=== PATIENT | female | born 1995 | race Caucasian/White ===

== ENCOUNTER → 2016-12-16 | Outpatient (CLI) | payer BC, OTHER | END | disposition home or self-care (01) | LOC: C.PAPS 16:06 | PROVIDERS: ATTEND Physician Assistant | DX: Z01.419 Encounter for gynecological examination (general) (routine) without abnormal findings (principal) ==

== ENCOUNTER → 2016-12-16 | Outpatient (CLI) | payer BC, OTHER ==
[2016-12-19 14:27] LABS: CHLAMYDIA TRACH RNA*** NOT DETECTED (NOT DETECTED); GC (NEIS GONORRHOEAE)RNA** NOT DETECTED (NOT DETECTED)
== END | disposition home or self-care (01) ==
LOC: C.LABSPEC 16:31
PROVIDERS: ATTEND Physician Assistant
DX: Z01.419 Encounter for gynecological examination (general) (routine) without abnormal findings (principal)

== ENCOUNTER → 2017-05-11 | Outpatient (CLI) | payer BC ==
[2017-05-13 11:26] LABS: EBV EARLY ANTIGEN AB < 9.00 U/ML
== END | disposition home or self-care (01) ==
LOC: C.LAB1850 16:11
PROVIDERS: ATTEND Nurse Practitioner Family
DX: J02.9 Acute pharyngitis, unspecified (principal)

== ENCOUNTER 2019-10-26 16:56 | Inpatient (IN) ==
[2019-10-26 17:38] LABS: Appearance Urine Cloudy (Clear); Bacteria Urine Automated 4+ (Negative); Bilirubin Urine Negative (Negative); Blood Urine Trace (Negative); Color Urine Dark Yellow; Epithelial Cell Urine Auto >30 /lpf (0-5); Glucose Urine UA Negative (Negative); Ketones Urine Trace (Negative); Leukocyte Esterase Urine Negative (Negative); Nitrite Urine Positive (Negative); Protein Urine 1+ (Negative); RBC Urine Automated 0-4 /hpf (0-4); Urobilinogen Urine Negative (Negative); pH Urine 5.5 (4.5-7.5)
--- NOTE | 2019-10-26 17:38 | Emergency Department Note ---
Impression & Plan Mood disorder, UTI (urinary tract infection), Miscarriage ED Provider Note NAME: EZEQUIEL MCQUEEN AGE: 24 SEX: F : 1995 ARRIVES VIA: [employer] INFORMANT: Patient, , police ED PROVIDER(S): Amrit Holliday DO CHIEF COMPLAINT: Mood disorder HPI: Patient is a 24-year-old female with a past medical history of bipolar who presents the ER for racing thoughts, paranoia and delusions. 302 was petitioned by her to bring her in. She believes that she is communicating with the President Ranjit Flores by posting videos online. She also believes that she is communicating with others by doing the same thing. She notes she does not have a personal relationship with them but cannot communicate whenever she wants. She called her neighbor 30+ times and was telling her that she is related to pack. She denies any headache, change in vision, chest pain, shortness of breath, nausea, vomiting or diarrhea. She notes that she smokes marijuana daily. She has no other complaints at this time. She denies any suicidal or homicidal ideations. No auditory visual hallucinations. Patient did have a miscarriage at about 10 to 11 weeks over a week ago. She has stopped bleeding for the past 3 days. She denies any fevers. Denies any belly pain. ROS: See above HPI for pertinent positives & negatives. A total of 10 systems reviewed and were otherwise negative. PAST MEDICAL HISTORY:Bipolar PAST SURGICAL HISTORY:[place] teeth FAMILY HISTORY:Hypertension SOCIAL HISTORY:Smokes marijuana HOME MEDICATIONS:None ALLERGIES:See Below VITALS:See Below PHYSICAL EXAMINATION: GENERAL: Sitting up in bed, alert, well appearing, well nourished, no distress, non-toxic EYE EXAM: normal conjunctiva. PERRL and EOM's grossly intact. OROPHARYNX: no exudate, no erythema, lips, buccal mucosa, and tongue normal and mucous membranes are moist NECK: supple, no nuchal rigidity, no adenopathy, non-tender LUNGS: Clear to auscultation. Normal chest wall mechanics HEART: no murmurs, S1 normal and S2 normal ABDOMEN: abdomen soft, non-tender, normo-active bowel sounds, no masses, no rebound or guarding. SKIN: no rashes and no bruising UPPER EXTREMITIES: upper extremities are grossly normal. LOWER EXTREMITIES: No pitting edema. NEURO EXAM: Normal sensorium, cranial nerves II-XII grossly intact, normal speech, no gross weakness of arms, no gross weakness of legs. PSYCH: Denies any suicidal homicidal ideations. Patient with flight of ideas, clear racing thoughts delusional and paranoid. MEDICAL DECISION MAKING: Patient is a 25-year-old female who presents the ER on a 302 petition by brought in by police. Patient is delusional, paranoid, with flight of ideas and racing thoughts. She believes she is communicating with the president and multiple other people via [place]. She believes to be related to [employer]. From a psychiatric standpoint she clearly needs to be admitted. She was evaluated by Kathleen; psychiatric assisted living care manager. Patient does not have the ability/capacity to sign herself in. We will proceed with 302 which is signed by myself. From a medical standpoint she has no complaints. Vaginal bleeding stopped 3 days ago. She is O+. No need for RhoGam. Beta hCG trended down from over 4000 to 18 today. Ultrasound showed mild prominence of the endometrium with areas of central blood flow. Concern of retained products. Patient currently has no vaginal bleeding at this time or for the past three days. Discussed with Dr. Olmedo from [facility]. She recommends repeat beta-hCG in 1 week and follow up as out patient. UA did suggest a UTI with +4 bacteria, and nitrates although there was no real white cells and there is clear comtamination. Will err on the side of caution and treat with Bactrim twice a day for 7 days although she has no real symptoms. Patient will be referred to 3 S. for admis marcelle from a psychiatric standpoint as she is medically stable at this time. Any recurrence of significant vaginal bleeding or foul-smelling vaginal discharge she will need to be reevaluated at that time. Patient was signed out to Dr. Flores at the change of shift. 820PM Triage Nursing notes reviewed. Prior medical records reviewed Vital Signs: reviewed and remarkable for no significant abnormalities Differential diagnosis: Mood disorder, infection, hypoglycemia, electrolyte abnormalities, cardiac sources, intracerebral event, toxicologic, trauma, neurologic, as well as other pathologies. ER treatment provided: See below Diagnostics interpreted by me: ECG: none Laboratory studies: As stated above and show below. Imaging studies: See below Consultation(s): Discussed with Dr. Olmedo from [facility]: Reviewed labs and ultrasound with her. Recommends repeat beta-hCG in 1 week. ED COURSE: Procedures: none Critical Care: None Past Med/Surg History Social History Preferred Language: Korean Feels Safe at Home: Yes Smoking Status: Current every day smoker Allergies Allergies Allergy/AdvReac Type Severity Reaction Status Date / Time lactose Allergy Gastrointestinal Verified 10/13/18 23:28 Upset Home Meds Home Medications Medication Instructions Recorded Confirmed [id number] 1 tab PO DAILY 10/26/19 10/26/19 [] zinc 50 mg PO DAILY 10/26/19 10/26/19 Results & Data (ED) Vital Signs Vital Signs - 24 hr 10/26/19 17:27 10/26/19 19:20 Temperature 37.6 C H Temperature Source Oral Pulse Rate 114 H Pulse Rate [Finger] 93 H Respiratory Rate 18 16 Respiratory Depth Normal Blood Pressure 152/116 H Blood Pressure [Left Arm] 140/86 Blood Pressure Mean 128 Blood Pressure Mean [Left Arm] 104 Pulse Oximetry 99 100 Oxygen Delivery Method Room Air Room Air Sepsis Recent Fever Within 48 Hours No Sepsis New/Unexplained Change in Mental Status No Sepsis Action Taken by Nursing No Action Required Laboratory Data Result diagrams: 10/26/19 17:32 10/26/19 17:32 Lab Results 10/26/19 10/26/19 10/26/19 Range/Units 17:11 17:11 17:27 WBC (4.8-10.8) K/uL RBC (4.2-5.4) M/uL Hgb (12.0-16.0) g/dL Hct (37-47) % MCV (80-100) fL MCH (25-34) pg MCHC (32-36) g/dL RDW Std Deviation (36.4-46.3) fL RDW Coeff of Debby (11.5-14.5) % Plt Count (130-400) K/uL MPV (7.4-10.4) fL Immature Gran % (Auto) % Neut % (Auto) % Lymph % (Auto) % [place] % (Auto) % Eos % (Auto) % Baso % (Auto) % Immature Gran # (Auto) (0.00-0.02) K/uL Neut # (Auto) (1.4-6.5) K/uL Lymph # (Auto) (1.2-3.4) K/uL [place] # (Auto) (0.11-0.59) K/uL Eos # (Auto) (0-0.5) K/uL Baso # (Auto) (0-0.2) K/uL Sodium (136-145) mmol/L Potassium (3.5-5.1) mmol/L Chloride (98-107) mmol/L Carbon Dioxide (21-32) mmol/L Anion Gap (3-11) BUN (7-18) mg/dl Creatinine (0.6-1.2) mg/dl Est Cr Clr Drug Dosing ml/min Est GFR ( Amer) Est GFR (Non-Af Amer) BUN/Creatinine Ratio (10-20) Glucose (70-99) mg/dl Calcium (8.5-10.1) mg/dl Total Bilirubin (0.2-1) mg/dl AST (15-37) U/L ALT (12-78) U/L Alkaline Phosphatase (45-117) U/L Total Protein (6.4-8.2) gm/dl Albumin (3.4-5.0) gm/dl Globulin (2.5-4.0) gm/dl Albumin/Globulin Ratio (0.9-2) TSH (0.300-4.500) uIu/ml HCG, Quant mIU/ml Urine Color Dark Yellow Urine Appearance Cloudy A (Clear) Urine pH 5.5 (4.5-7.5) Ur Specific [place] 1.020 (1.000-1.030) Urine Protein 1+ H (Negative) Urine Glucose (UA) Negative (Negative) Urine Ketones Trace H (Negative) Urine Blood Trace H (Negative) Urine Nitrite Positive A (Negative) Urine Bilirubin Negative (Negative) Urine Urobilinogen Negative (Negative) Ur Leukocyte Esterase Negative (Negative) Urine WBC (Auto) 1-5 (0-5) /hpf Urine RBC (Auto) 0-4 (0-4) /hpf U Hyaline Cast (Auto) 5-10 H (0-5) /lpf U Epithel Cells (Auto) >30 H (0-5) /lpf Urine Bacteria (Auto) 4+ H (Negative) POC Ur Test POS (NEG) Salicylates (2.8-20) mg/dl Urine Opiates Screen Neg (Neg) Ur Methadone, Qual Neg (Neg) Acetaminophen (10-30) ug/ml Urine Barbiturates Neg (Neg) Ur Phencyclidine (PCP) Neg (Neg) U Amphetamin/Meth Scrn Neg (Neg) MDMA (Ecstasy) Screen Neg (Neg) U Benzodiazepines Scrn Neg (Neg) Ur Cocaine Metabolite Neg (Neg) U Marijuana (THC) Screen Pos H (Neg) Ethyl Alcohol mg/dL (0-3) mg/dl 10/26/19 10/26/19 10/26/19 Range/Units 17:32 17:32 17:32 WBC 4.58 L (4.8-10.8) K/uL RBC 4.38 (4.2-5.4) M/uL Hgb 13.2 (12.0-16.0) g/dL Hct 37.5 (37-47) % MCV 85.6 (80-100) fL MCH 30.1 (25-34) pg MCHC 35.2 (32-36) g/dL RDW Std Deviation 41.1 (36.4-46.3) fL RDW Coeff of Debby 13.1 (11.5-14.5) % Plt Count 232 (130-400) K/uL MPV 9.9 (7.4-10.4) fL Immature Gran % (Auto) 0.2 % Neut % (Auto) 43.6 % Lymph % (Auto) 44.8 % [place] % (Auto) 8.7 % Eos % (Auto) 2.0 % Baso % (Auto) 0.7 % Immature Gran # (Auto) 0.01 (0.00-0.02) K/uL Neut # (Auto) 2.00 (1.4-6.5) K/uL Lymph # (Auto) 2.05 (1.2-3.4) K/uL [place] # (Auto) 0.40 (0.11-0.59) K/uL Eos # (Auto) 0.09 (0-0.5) K/uL Baso # (Auto) 0.03 (0-0.2) K/uL Sodium 140 (136-145) mmol/L Potassium 3.6 (3.5-5.1) mmol/L Chloride 108 H (98-107) mmol/L Carbon Dioxide 25 (21-32) mmol/L Anion Gap 7.0 (3-11) BUN 9 (7-18) mg/dl Creatinine 0.93 (0.6-1.2) mg/dl Est Cr Clr Drug Dosing 85.4 ml/min Est GFR ( Amer) 99.0 Est GFR (Non-Af Amer) 85.4 BUN/Creatinine Ratio 9.9 L (10-20) Glucose 80 (70-99) mg/dl Calcium 9.1 (8.5-10.1) mg/dl Total Bilirubin 0.7 (0.2-1) mg/dl AST 33 (15-37) U/L ALT 37 (12-78) U/L Alkaline Phosphatase 46 (45-117) U/L Total Protein 7.8 (6.4-8.2) gm/dl Albumin 4.2 (3.4-5.0) gm/dl Globulin 3.6 (2.5-4.0) gm/dl Albumin/Globulin Ratio 1.2 (0.9-2) TSH 0.307 (0.300-4.500) uIu/ml HCG, Quant mIU/ml Urine Color Urine Appearance (Clear) Urine pH (4.5-7.5) Ur Specific [place] (1.000-1.030) Urine Protein (Negative) Urine Glucose (UA) (Negative) Urine Ketones (Negative) Urine Blood (Negative) Urine Nitrite (Negative) Urine Bilirubin (Negative) Urine Urobilinogen (Negative) Ur Leukocyte Esterase (Negative) Urine WBC (Auto) (0-5) /hpf Urine RBC (Auto) (0-4) /hpf U Hyaline Cast (Auto) (0-5) /lpf U Epithel Cells (Auto) (0-5) /lpf Urine Bacteria (Auto) (Negative) POC Ur Test (NEG) Salicylates 3.4 (2.8-20) mg/dl Urine Opiates Screen (Neg) Ur Methadone, Qual (Neg) Acetaminophen < 2 L (10-30) ug/ml Urine Barbiturates (Neg) Ur Phencyclidine (PCP) (Neg) U Amphetamin/Meth Scrn (Neg) MDMA (Ecstasy) Screen (Neg) U Benzodiazepines Scrn (Neg) Ur Cocaine Metabolite (Neg) U Marijuana (THC) Screen (Neg) Ethyl Alcohol mg/dL (0-3) mg/dl 10/26/19 10/26/19 Range/Units 17:32 17:32 WBC (4.8-10.8) K/uL RBC (4.2-5.4) M/uL Hgb (12.0-16.0) g/dL Hct (37-47) % MCV (80-100) fL MCH (25-34) pg MCHC (32-36) g/dL RDW Std Deviation (36.4-46.3) fL RDW Coeff of Debby (11.5-14.5) % Plt Count (130-400) K/uL MPV (7.4-10.4) fL Immature Gran % (Auto) % Neut % (Auto) % Lymph % (Auto) % [place] % (Auto) % Eos % (Auto) % Baso % (Auto) % Immature Gran # (Auto) (0.00-0.02) K/uL Neut # (Auto) (1.4-6.5) K/uL Lymph # (Auto) (1.2-3.4) K/uL [place] # (Auto) (0.11-0.59) K/uL Eos # (Auto) (0-0.5) K/uL Baso # (Auto) (0-0.2) K/uL Sodium (136-145) mmol/L Potassium (3.5-5.1) mmol/L Chloride (98-107) mmol/L Carbon Dioxide (21-32) mmol/L Anion Gap (3-11) BUN (7-18) mg/dl Creatinine (0.6-1.2) mg/dl Est Cr Clr Drug Dosing ml/min Est GFR ( Amer) Est GFR (Non-Af Amer) BUN/Creatinine Ratio (10-20) Glucose (70-99) mg/dl Calcium (8.5-10.1) mg/dl Total Bilirubin (0.2-1) mg/dl AST (15-37) U/L ALT (12-78) U/L Alkaline Phosphatase (45-117) U/L Total Protein (6.4-8.2) gm/dl Albumin (3.4-5.0) gm/dl Globulin (2.5-4.0) gm/dl Albumin/Globulin Ratio (0.9-2) TSH (0.300-4.500) uIu/ml HCG, Quant 18 mIU/ml Urine Color Urine Appearance (Clear) Urine pH (4.5-7.5) Ur Specific [place] (1.000-1.030) Urine Protein (Negative) Urine Glucose (UA) (Negative) Urine Ketones (Negative) Urine Blood (Negative) Urine Nitrite (Negative) Urine Bilirubin (Negative) Urine Urobilinogen (Negative) Ur Leukocyte Esterase (Negative) Urine WBC (Auto) (0-5) /hpf Urine RBC (Auto) (0-4) /hpf U Hyaline Cast (Auto) (0-5) /lpf U Epithel Cells (Auto) (0-5) /lpf Urine Bacteria (Auto) (Negative) POC Ur Test (NEG) Salicylates (2.8-20) mg/dl Urine Opiates Screen (Neg) Ur Methadone, Qual (Neg) Acetaminophen (10-30) ug/ml Urine Barbiturates (Neg) Ur Phencyclidine (PCP) (Neg) U Amphetamin/Meth Scrn (Neg) MDMA (Ecstasy) Screen (Neg) U Benzodiazepines Scrn (Neg) Ur Cocaine Metabolite (Neg) U Marijuana (THC) Screen (Neg) Ethyl Alcohol mg/dL < 3.0 (0-3) mg/dl Administered Medications Discontinued Medications Trimethoprim/Sulfamethoxazole (Septra Ds 800/160mg Tab) 1 tab PO NOW ONE Stop: 10/26/19 18:10 Last Admin: 10/26/19 18:25 Dose: 1 tab Documented by: [id number] Discharge Plan Visit Data Chief Complaint: Mental Health Evaluation ED Provider: Christiano Flores Discharge Problem: Mood disorder, UTI (urinary tract infection), Miscarriage Forms Stand Alone Forms: [facility] [employer], Suicide Prevention Resources Prescriptions Prescriptions: No Action 28-800 mg-mcg Tablet 1 tab PO DAILY RF: 0 zinc 50 mg Tablet 50 mg PO DAILY RF: 0 Discharge Problem: UTI (urinary tract infection) Qualifiers: Urinary tract infection type: site unspecified Hematuria presence: without hematuria Qualified Code(s): N39.0 - Urinary tract infection, site not specified
[2019-10-26 17:50] LABS: Basophils # (auto) 0.03 K/uL (0-0.2); Basophils % (auto) 0.7 %; Eosinophils # (auto) 0.09 K/uL (0-0.5); Hematocrit (blood only) 37.5 % (37-47); Hemoglobin 13.2 g/dL (12.0-16.0); Immature Granulocytes # (auto) 0.01 K/uL (0.00-0.02); Immature Granulocytes % (auto) 0.2 %; Lymphocytes # (auto) 2.05 K/uL (1.2-3.4); Lymphocytes % (auto) 44.8 %; Mean Corpuscular Hemoglobin 30.1 pg (25-34); Mean Corpuscular Hgb Conc 35.2 g/dL (32-36); Mean Corpuscular Volume 85.6 fL (80-100); Mean Platelet Volume 9.9 fL (7.4-10.4); Monocytes % (auto) 8.7 %; Neutrophils % (auto) 43.6 %; Platelet Count 232 K/uL (130-400); RDW Coefficient of Variation 13.1 % (11.5-14.5); RDW Standard Deviation 41.1 fL (36.4-46.3); Red Blood Count 4.38 M/uL (4.2-5.4); White Blood Count 4.58 K/uL (4.8-10.8)
[2019-10-26 18:05] LABS: Amphetamines+Metham, Urine Neg (Neg); Barbiturates, Urine Neg (Neg); Benzodiazepine, Urine Neg (Neg); Cocaine, Urine Neg (Neg); MDMA (Ecstacy), Urine Neg (Neg); Methadone, Urine Neg (Neg); Opiate, Urine Neg (Neg); Phencyclidine, Urine Neg (Neg)
[2019-10-26] MEDS ORDERED: cephALEXin 250 MG CAP PO ONE (18:06)
[2019-10-26] MEDS ORDERED: SULFAMETHOXAZOLE/TRIMETHOPRIM DS 800/160MG TAB PO ONE (18:09)
[2019-10-26 18:16] LABS: Albumin Level 4.2 gm/dl (3.4-5.0); BUN Creatinine Ratio 9.9 (10-20); Calcium 9.1 mg/dl (8.5-10.1); Creatinine Clr Calc Pharmacy 85.4 ml/min; Est GFR (Non-African American) 85.4; Potassium 3.6 mmol/L (3.5-5.1)
[2019-10-26 18:24] LABS: Acetaminophen < 2 ug/ml (10-30)
[2019-10-26 18:25] LABS: Salicylate 3.4 mg/dl (2.8-20)
[2019-10-26 18:26] LABS: Albumin Globulin Ratio 1.2 (0.9-2); Bilirubin,Total 0.7 mg/dl (0.2-1); Globulin 3.6 gm/dl (2.5-4.0); Thyroid Stimulating Hormone 0.307 uIu/ml (0.300-4.500); Total Protein 7.8 gm/dl (6.4-8.2)
--- NOTE | 2019-10-26 19:40 | Ultrasound Report ---
US OB <= 14 weeks fetus HISTORY: 24 years-old Female vag bleed +bhcg acute vaginal bleeding with positive test COMPARISON: None TECHNIQUE: Multiple real-time sonographic images of the deep pelvic structures were obtained transabd ominally and transvaginally assessing grayscale appearance, color and spectral flow FINDINGS: TRANSABDOMINAL: Pelvic structures are suboptimally visualized. TRANSVAGINAL: Fluid is noted within the endocervical canal. Anteflexed uterus. Endometrium at the level of the fund us measures 8 mm and demonstrates areas of increased central flow. No intrauterine or extrauterine ge station identified. Follicular changes of the right ovary are noted which measures 3.0 x 3.4 x 1.9 cm. Trace free fluid i s noted adjacent to the right adnexum. Arterial inflow and venous outflow to the right ovary is docum ented. Follicular changes of the left ovary are noted which measures 2.5 x 4.5 x 2.9 cm. Arterial inflow and venous outflow to the left ovary is documented. Dominant left ovarian follicle, 2.0 cm. IMPRESSION: 1. No intrauterine or extrauterine gestation identified. 2. Mild prominence of the fundal endometrium with areas of central blood flow. In the clinical settin g of acute vaginal bleeding with positive test, these findings may correlate with retained products of conception with spontaneous . Correlate with pelvic exam findings and serial bean titative beta hCG analysis. 3. Trace fluid of the endocervical canal. ACT 112: Negative or not required by law. The above report was generated using voice recognition software. It may contain grammatical, syntax o r spelling errors. Electronically signed by: Otto Vera M.D. 10/26/2019 7:39 PM
--- NOTE | 2019-10-26 22:55 | Emergency Department Note ---
ED Visit Note I assumed care at the change of shift. The patient was being evaluated by our psychiatric services at this hospital for 302 hospitalization. The team from the hospital requested a rapid coronavirus test. This was run and returned negative. The patient has been cooperative during her stay while under my care. She is being transferred upstairs for an involuntary 302 psychiatric hospitalization. . : UTI (urinary tract infection) Qualifiers: Urinary tract infection type: site unspecified Hematuria presence: without hematuria Qualified Code(s): N39.0 - Urinary tract infection, site not specified
[2019-10-27] MEDS ORDERED: risperiDONE ODT 0.5 MG SOLTAB PO PRN (01:23)
[2019-10-27] MEDS ORDERED: MAGNESIUM HYDROXIDE SUSP 30 ML UDC PO PRN (01:25)
[2019-10-27] MEDS ORDERED: SODIUM CHLORIDE 0.65% NA SOLN 45 ML (OCEAN) PRN (01:25)
[2019-10-27] MEDS ORDERED: BISMUTH SUBSALICYLATE PER ML OMNICELL CHARGE PO PRN (01:25)
[2019-10-27] MEDS ORDERED: ACETAMINOPHEN 325 MG TAB PO PRN (01:25)
[2019-10-27] MEDS ORDERED: ALUMINUM/MAGNESIUM SUSP 30 ML UDC PO PRN (01:25)
[2019-10-27] MEDS: risperiDONE ODT 0.5 MG SOLTAB PO SCH ×3 (01:46→22:21)
[2019-10-27] MEDS: SULFAMETHOXAZOLE/TRIMETHOPRIM DS 800/160MG TAB PO SCH ×2 (08:01→22:21)
[2019-10-27] MEDS ORDERED: NICOTINE 7 MG/24 HR TDSY TD SCH (09:00)
[2019-10-27] MEDS ORDERED: QUETIAPINE FUMARATE 25 MG TABLET PO PRN (17:04)
--- NOTE | 2019-10-27 20:28 | History & Physical ---
Date of Service October 27, 2019 Impression / Recommendations Impression bipolar d/o manic episode newly dx and new for pt to be addressing this 3rd miscarriages per pt, pt wants to try to get again once psychiatric stabilized upcoming local move, cocoons of Covid 19, work concerns, interpersonal interactions with aggravating factors 302 admission with pt seeking assistance and open to being in a manic state and open to bipolar d/o dx with tendency to also externalize in her racing thoughts and pressured speech, she sis seeking medication to stabilize her mood. She is open to aftercare referrals. Rec'd Risperdal in ER but we are switching to Seroquel and titrating Seroquel up given prolactin impact expected with Risperdal andhow can impact her aim to try to become in future. Reviewed various medications to target her isrrael and pt most interested in Seroquel at this time Plan Bipolar d/o 302 admission 3S q15 minute checks milieu therapy inpt individual and group therapy stopped Risperdal start Seroquel at 50mg Hs and 25mg prn doses up to bid with aim to titrate further as tolerating. fasting labs for sugar and lipids given atypical antipsychotic start psychoeducation aftercare referrals family meeting - aiming for meeting with Inventory Assets Strengths: intelligent, decent insight into her presentation and seeking treatment Needs: stabilization of mood symptoms, aftercare, medication to target symptoms, further education about dx and symptoms Risk Factors Assessment Male: No : No Do You Have Access To A Gun?: No Health Problems: No Mental Health Diagnoses: Yes Substance Use Disorders: No Previous Attempt: Yes Previous Psychiatric Hospitalization: No Smoker: Yes Protective Factors Assessment Responsible for Young Children: No 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 Chief Complaint "angry,stressed, reactive due to covid 19 and my History of Present Illness pt is a 24 yr old female living with her , admitted on a 302 commitment. Pt is with pressured speech and focused on explaining the source of her stress being covid 19 and her 's untreated bipolar II disorder. However in midst of this she does admit to a tendency to externalize and that she wonders if she has bipolar I disorder. She is insightful about her racing thoughts, labile mood, intense anger, increased goal directed activity, impatience, increased sexuality, hyperverbal, pressured speech, restlessness, creative thinking, decreased need for sleep with getting only 2-3 hours of sleep over course of 24 hour day in 2-3 small mini naps over course of day, over driven behaviors and feeling tense and struggling to manage these symptoms and struggling to contain herself in interpersonal situations. She is reported to have had delusional thinking and she indicated that there was a misunderstanding of her facebook posts as she did not mean them in the context they were taken but that she seemed to understand that her manic smyptoms might have lead to some of this now reported misunderstanding. no delusional or paranoid material was noted in this current interview, with pt reporting rather intact infight and judgment during this assessment. she denied overspending of money. She endorsed a tendency to get to depressed mood at times. She has had prior depressive episodes in the past, one of which lead her to take Wellbutrin soni (150mg?) daily for a month and amrita neglected to renew her script. She felt much echter as she too the Wellbutrin that it help her severely limit her smoking, she worsened n her mood shortly after stopping that med. She denied s/e while on it including denying worsening of lability of her mood or activating manic symptoms. additional aggravating factor is amrita having her 3rd miscarriage. she is seeing to try of become again but not aiming tor this till more emotional stable and less stressed. additional aggravating factor is preparing for a local move. lives with and supportive family members live quite close to them. 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 she is taking a open course online and seeking to study church studies at [employer] with goal of becoming a professor in that field in the future. denied SI, indicated agitated tied oat manic symptoms with admitting to gating out of control verbally but not physically but was intense in her anger recently. Past Psychiatric History Previous Psych History: denied prior med trials denied prior psychiatric admissions denied prior appts with a psychiatrist Current Psychiatric Diagnosis: bipolar disorder Do You Have Access To A Gun?: No History of Previous Suicide Attempt: Yes Describe Attempts in the Past: 1 1/2 years ago - stated thoughts to cut wrist. Per mother - OD Allergies Allergy/AdvReac Type Severity Reaction Status Date / Time lactose Allergy Gastrointestinal Verified 10/13/18 23:28 Upset Home Medications Home Medications Medication Instructions Recorded Confirmed Type [id number] fumarate-FA 1 tab PO DAILY 10/26/19 10/26/19 History [] zinc 50 mg PO DAILY 10/26/19 10/26/19 History Family History Family History of: None Alcohol History Hx of Alcohol Use Over the Past 12 Months: Yes (social/occassional) Smoking Use Have You Smoked or Used Tobacco Products in the Last 30 Days: Yes tobacco type: cigarettes Smoking Status: Current every day smoker Smoking packs per day: 1 (plus more lately ) Substance History Hx of Prescription Med Misuse Over the Past 12 Months: No Hx of Over the Counter Med Misuse Over the Past 12 Months: No Hx of Inhalent Misuse Over the Past 12 Months: No Hx of Organic Substance Use Over the Past 12 Months: No Hx of Illegal Substances/Street Drug Use Over Past 12 Months: No Problems as a Result of Past Substance Use: None Identified Personal History Living Arrangements: Apartment Highest Grade Completed: Vocational Training Marital Status: Number Of Children: Has had 3 miscarriages in 2 years Beliefs That Will Affect Care: None Patient History Social History Preferred Language: Israeli Communication Ability: Effective Cd Technician Required: No Beliefs That Will Affect Care: None Feels Safe at Home: Yes Smoking Status: Current every day smoker Tobacco Type: cigarettes ; Review of Systems Review of Systems: All systems reviewed & are unremarkable except as noted in HPI & below limited sleep and limited eating past month while manic, wt loss has occurred per pt denied other positive findings Physical Exam Psychiatric: Orientation: alert, oriented x 3 and cooperative Apperance: appropriately dressed and appropriately groomed Eye Contact: good eye contact Motor Behavior: steady gait and station Speech: + pressured speech excited almost euphoric affect that can get agitated easily easily angered and very stressed and easily excited mood per pt Thought Process: + circumstantial thought process and + tangential thought process externalization and extensive rationalizing while also acknowledging that in manic state Suicidal Thoughts: denies suicidal thoughts Homicidal Thoughts: denies homicidal thoughts Hallucinations: no auditory hallucinations and no visual hallucinations Cognition: recent memory grossly intact, remote memory grossly intact and language grossly intact impaired concentration Insight: + fair insight Judgement: + fair judgement physical exam done in ER on 09/[address] Holliday was reviewed and considered appropriate and acceptable and sufficent for purpose of this admission Vital Signs (Past 24 Hours): Last Vital Signs Temp 36.7 C 10/27/19 07:12 Pulse 103 H 10/27/19 07:13 Resp 18 10/27/19 07:12 BP 133/96 10/27/19 07:13 Pulse Ox 99 10/27/19 01:09 Results & Data ([facility]) Laboratory Results Laboratory Results - last 24 hr 10/26/19 21:29 COVID-19 PCR NEGATIVE Current Inpatient Medications Current Inpatient Medications: Current Inpatient Medications Acetaminophen (Tylenol) 650 mg PO Q4H PRN PRN Reason: Headache or Minor Fever Stop: 11/26/19 01:24 Al Hydrox/Mg Hydrox/Simethicone (Maalox) 30 ml PO Q4H PRN PRN Reason: GI Upset Stop: 11/26/19 01:24 Bismuth Subsalicylate (Kaopectate) 15 ml PO PRN PRN PRN Reason: Loose Stool Stop: 11/26/19 01:24 Bupropion HCl (Wellbutrin-Sr) 150 mg PO QAM [facility] Stop: 11/27/19 08:59 Hydroxyzine HCl (Vistaril) 50 mg PO HSZ PRN PRN Reason: Insomnia Stop: 11/26/19 01:24 Hydroxyzine HCl (Vistaril) 25 mg PO Q4H PRN PRN Reason: Anxiety Stop: 11/26/19 01:24 Magnesium Hydroxide (Milk Of Magnesia) 30 ml PO DAILY PRN PRN Reason: Constipation Stop: 11/26/19 01:24 Miscellaneous (Remove Nicoderm Patch) 1 ea N/A DAILY@0859 [facility] Stop: 11/27/19 08:58 Nicotine (Nicoderm Cq) 14 mg TD QAM [facility] Stop: 11/26/19 17:14 Nicotine Polacrilex (Nicorette 2mg) 1 piece MT PRN PRN PRN Reason: smoking cravings Stop: 11/26/19 17:04 Quetiapine Fumarate (Seroquel) 25 mg PO BID PRN PRN Reason: agitation/manic symptoms Stop: 11/26/19 20:59 Quetiapine Fumarate (Seroquel) 50 mg PO HS [facility] Stop: 11/26/19 21:59 Risperidone (Risperdal M) 0.5 mg PO BID [facility] Stop: 11/26/19 01:22 Last Admin: 10/27/19 08:01 Dose: 0.5 mg Documented by: Risperidone (Risperdal M) 0.5 mg PO BID PRN PRN Reason: Agitation/psychosis Stop: 11/26/19 01:22 Sodium Chloride ([place] Nasal) 1 - 2 sprays NA PRN PRN PRN Reason: Nasal Dryness/Congestion Stop: 11/26/19 01:24 Trimethoprim/Sulfamethoxazole (Septra Ds 800/160mg Tab) 1 tab PO BID [facility] Stop: 11/03/19 08:59 Last Admin: 10/27/19 08:01 Dose: 1 tab Documented by:
[2019-10-27] MEDS ORDERED: QUETIAPINE FUMARATE 25 MG TABLET PO SCH (22:00)
[2019-10-27] MEDS: NICOTINE 14 MG/24 HR PATCH TD SCH (22:21)
[2019-10-28] MEDS: SULFAMETHOXAZOLE/TRIMETHOPRIM DS 800/160MG TAB PO SCH ×2 (08:33→21:08)
[2019-10-28] MEDS: NICOTINE 14 MG/24 HR PATCH TD SCH (08:34)
[2019-10-28] MEDS: risperiDONE ODT 0.5 MG SOLTAB PO SCH (08:34)
[2019-10-28] MEDS: BuPROPion SR 150 MG TABCR PO SCH (08:34)
[2019-10-28 09:03] LABS: Glucose Fasting 75 mg/dl (70-99)
[2019-10-28 09:09] LABS: Chol HDL Ratio 2; Cholesterol 208 mg/dl (0-200); HDL Cholesterol 101 mg/dl; LDL Cholesterol Calculated 95 mg/dl; Triglycerides 59 mg/dl (0-150); VLDL Cholesterol 12 mg/dl
[2019-10-28] MEDS ORDERED: LACTASE 3000 UNIT TAB PO PRN (13:38)
[2019-10-28] MEDS: QUETIAPINE FUMARATE 25 MG TABLET PO SCH (15:04)
--- NOTE | 2019-10-28 17:20 | Psychiatric Progress Note ---
Date of Service October 28, 2019 Impression / Recommendations Impression bipolar d/o manic episode newly dx and new for pt to be addressing this 3rd miscarriages per pt, pt wants to try to get again once psychiatric stabilized upcoming local move, cocoons of Covid 19, work concerns, interpersonal interactions with aggravating factors 302 admission with pt seeking assistance and open to being in a manic state and open to bipolar d/o dx with tendency to also externalize in her racing thoughts and pressured speech, she sis seeking medication to stabilize her mood. She is open to aftercare referrals. Rec'd Risperdal in ER but we are switching to Seroquel and titrating Seroquel up given prolactin impact expected with Risperdal and how can impact her aim to try to become in future. Reviewed various medications to target her isrrael and pt most interested in Seroquel at this time. ongoing smyptoms and would expect decompensation and risk of harm to self and others if discharged at this time, however pt is expressing some reasonable insight and jdugment about seeking care. Is posible pt might be able to convert to voltnary treaatment status if such engagement and improvement is noted Plan Bipolar d/o 10/26 302 admission 3S q15 minute checks milieu therapy inept individual and group therapy stopped Risperdal start Seroquel at 50mg Hs and 25mg pen doses up to bid with aim to titrate further as tolerating. fasting labs for sugar and lipids given atypical antipsychotic start psychoeducation aftercare referrals family meeting - aiming for meeting with 10/27 increase seroquel to 25mg am schedule and 100mg hs scheduled and maintained 25mg prn doses up to bid continue treatment plan as above, family meeting pending Inventory Assets Strengths: intelligent, decent insight into her presentation and seeking treatment Needs: stabilization of mood symptoms, aftercare, medication to target symptoms, further education about dx and symptoms Risk Factors Assessment Male: No : No Do You Have Access To A Gun?: No Health Problems: No Mental Health Diagnoses: Yes Substance Use Disorders: No Previous Attempt: Yes Previous Psychiatric Hospitalization: No Smoker: Yes Protective Factors Assessment Responsible for Young Children: No 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 Review of Systems Sleep Information Total Hours of Sleep: 11 Sleep Comments: admitted at 0112. Meal Information Percent Meal Consumed - Breakfast: 100 Percent Meal Consumed - Lunch: 100 Percent Meal Consumed - Dinner: 50 Subjective Subjective Patient was seen & assessed and interval progress reviewed with nursing and social work slept from mid evening to morning, faitgued for first hour that was up in morning but that resolved. mind is less racing per pt but can get racing easily when on subjects interested in or similarly triggered per pt, states racing process gets quite severely quite suddenlly tioday. anger much less present today. feels more able to ocntain her speech and thoughts today but was frustrated when strugled to spell worldbackwards and indicated that it showed her how she is more impacted by her racing thougths and related smyptoms then she would prefer to admit. She conitues toexternalize and raitonalize but continues to easily move past that when redirected by director underwriter sales. denied SI or HI. expresses that nyone thinking she was with SI or HI was misunderstanding her comments and her intention. She is engaging wiht peers but in manner that is tied ot her hyperverbalness and pressured speech and in a more professoral manner when observed by director underwriter sales. She feels seroquel helped her sleep. and is open to titrating it further and to have a small am schedule dose as well and access to small prn doses as well. Physical Exam Psychiatric Orientation: alert, oriented x 3 and cooperative Apperance: appropriately dressed and appropriately groomed Eye Contact: good eye contact Motor Behavior: steady gait and station Speech: + pressured speech Thought Process: + circumstantial thought process and + tangential thought process Suicidal Thoughts: denies suicidal thoughts Homicidal Thoughts: denies homicidal thoughts Hallucinations: no auditory hallucinations and no visual hallucinations Cognition: recent memory grossly intact, remote memory grossly intact and language grossly intact Insight: + fair insight Judgement: + fair judgement Vital Signs (Past 24 Hours) Last Vital Signs Temp 36.6 C 10/28/19 06:00 Pulse 80 10/28/19 06:00 Resp 18 10/28/19 06:00 BP 122/81 10/28/19 06:00 Pulse Ox 99 10/27/19 01:09 Results & Data ([facility]) Laboratory Results Laboratory Results - last 24 hr 10/28/19 08:18 Fasting Glucose 75 Triglycerides 59 Cholesterol 208 H LDL Cholesterol, Calc 95 VLDL Cholesterol, Calc 12 HDL Cholesterol 101 Cholesterol/HDL Ratio 2 Current Inpatient Medications Current Inpatient Medications: Current Inpatient Medications Acetaminophen (Tylenol) 650 mg PO Q4H PRN PRN Reason: Headache or Minor Fever Stop: 11/26/19 01:24 Al Hydrox/Mg Hydrox/Simethicone (Maalox) 30 ml PO Q4H PRN PRN Reason: GI Upset Stop: 11/26/19 01:24 Bismuth Subsalicylate (Kaopectate) 15 ml PO PRN PRN PRN Reason: Loose Stool Stop: 11/26/19 01:24 Bupropion HCl (Wellbutrin-Sr) [facility] Stop: 11/27/19 08:59 Last Admin: 10/28/19 08:34 Dose: 150 mg Documented by: Hydroxyzine HCl (Vistaril) 50 mg PO HSZ PRN PRN Reason: Insomnia Stop: 11/26/19 01:24 Hydroxyzine HCl (Vistaril) 25 mg PO Q4H PRN PRN Reason: Anxiety Stop: 11/26/19 01:24 Lactase (Lactaid) 3,000 units PO PRN PRN PRN Reason: lactose exposure Stop: 11/27/19 13:44 Magnesium Hydroxide (Milk Of Magnesia) 30 ml PO DAILY PRN PRN Reason: Constipation Stop: 11/26/19 01:24 Miscellaneous (Remove Nicoderm Patch) 1 ea N/A DAILY@0859 [facility] Stop: 11/27/19 08:58 Last Admin: 10/28/19 08:34 Dose: 1 ea Documented by: Nicotine (Nicoderm Cq) 14 mg TD [facility] Stop: 11/26/19 17:14 Last Admin: 10/28/19 08:34 Dose: 14 mg Documented by: Nicotine Polacrilex (Nicorette 2mg) 1 piece MT PRN PRN PRN Reason: smoking cravings Stop: 11/26/19 17:04 Quetiapine Fumarate (Seroquel) 25 mg PO BID PRN PRN Reason: agitation/manic symptoms Stop: 11/26/19 20:59 Quetiapine Fumarate (Seroquel) 100 mg PO HS [facility] Stop: 11/27/19 21:59 Quetiapine Fumarate (Seroquel) 25 mg PO DAILY [facility] Stop: 11/27/19 13:59 Last Admin: 10/28/19 15:04 Dose: 25 mg Documented by: Sodium Chloride ([place] Nasal) 1 - 2 sprays NA PRN PRN PRN Reason: Nasal Dryness/Congestion Stop: 11/26/19 01:24 Trimethoprim/Sulfamethoxazole (Septra Ds 800/160mg Tab) 1 tab PO BID [facility] Stop: 11/03/19 08:59 Last Admin: 10/28/19 08:33 Dose: 1 tab Documented by: Mental Health & Subst Abuse Tx Therapist Name of Therapist: None Gas Plumber Name of Gas Plumber: None Post Discharge Appointments Primary Care Physician Name Of Family Doctor: KATERIN Hart Primary Care Provider Appointment Comment: [address] [facility], [address], [place] [address] Contact Information Discharge Discharge Address: [address] [place] [address], [place] [address], [place] [address]
[2019-10-28] MEDS: QUETIAPINE FUMARATE 100 MG TABLET PO SCH (21:08)
[2019-10-29 04:51] LABS: Marijuana Quant, GCMS Urine 240 ng/mL (<5)
--- NOTE | 2019-10-29 07:57 | Psychiatric Progress Note ---
Date of Service October 29, 2019 Impression / Recommendations Impression Bipolar d/o manic episode newly dx and new for pt to be addressing this. Stressors include upcoming local move, cocoons of Covid 19, work concerns, interpersonal interactions with . 302 admission with pt seeking assistance and open to being in a manic state and open to bipolar d/o dx with tendency to also externalize in her racing thoughts and pressured speech, she sis seeking medication to stabilize her mood. She is open to aftercare referrals. Rec'd Risperdal in ER but we are switching to Seroquel and titrating Seroquel up given prolactin impact expected with Risperdal and how can impact her aim to try to become in future. Inpatient treatment medically necessary due to ongoing manic symptoms, and risk for rapid decompensation and risk of harm to self and others if discharged at this time. (1) Bipolar 1 disorder: 10/26 - manic episode, newly dx and new for pt to be addressing this 302 admission 3S q15 minute checks milieu therapy inept individual and group therapy stopped Risperdal start Seroquel at 50mg Hs and 25mg pen doses up to bid with aim to titrate further as tolerating. fasting labs for sugar and lipids given atypical antipsychotic start psychoeducation aftercare referrals family meeting - aiming for meeting with 10/27 increase seroquel to 25mg am schedule and 100mg hs scheduled and maintained 25mg prn doses up to bid continue treatment plan as above, family meeting pending 10/28 -baseline FLP notable for cholesterol 208, otherwise within normal limits. -Will need family meeting with her . Will need referral for outpatient psychiatric care. (2) Miscarriage: 10/26 - 3rd miscarriages per pt, pt wants to try to get again once psychiatric stabilized 10/28 -will need follow-up with TONSORIAL ARTIST. (3) UTI (urinary tract infection): Complete antibiotic started in the ER. 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 Chief Complaint "[]". Review of Systems Sleep Information Total Hours of Sleep: 7.25 Sleep Comments: admitted at 0112. Meal Information Percent Meal Consumed - Breakfast: 100 Percent Meal Consumed - Lunch: 100 Percent Meal Consumed - Dinner: 100 Subjective Subjective Patient was seen & assessed and interval progress reviewed with treatment team. Staff report she remains hyperverbal, loose, with FOI, disruptive and requiring frequent redirection. She is taking quetiapine as prescribed, and sleep is improving. She has not yet been organized enough to participate in a family meeting with her . Physical Exam Vital Signs (Past 24 Hours) Last Vital Signs Temp 36.6 C 10/29/19 06:47 Pulse 76 10/29/19 06:48 Resp 18 10/29/19 06:47 BP 116/78 10/29/19 06:48 Pulse Ox 99 10/27/19 01:09 Results & Data ([facility]) Laboratory Results Laboratory Results - last 24 hr 10/26/19 10/28/19 17:11 08:18 Fasting Glucose 75 Triglycerides 59 Cholesterol 208 H LDL Cholesterol, Calc 95 VLDL Cholesterol, Calc 12 HDL Cholesterol 101 Cholesterol/HDL Ratio 2 U Marijuana THC Carboxy 240 H Drug Screen Comment SEE NOTE Current Inpatient Medications Current Inpatient Medications: Current Inpatient Medications Acetaminophen (Tylenol) 650 mg PO Q4H PRN PRN Reason: Headache or Minor Fever Stop: 11/26/19 01:24 Al Hydrox/Mg Hydrox/Simethicone (Maalox) 30 ml PO Q4H PRN PRN Reason: GI Upset Stop: 11/26/19 01:24 Bismuth Subsalicylate (Kaopectate) 15 ml PO PRN PRN PRN Reason: Loose Stool Stop: 11/26/19 01:24 Bupropion HCl (Wellbutrin-Sr) 150 mg PO QAM [facility]ERTO Stop: 11/27/19 08:59 Last Admin: 10/28/19 08:34 Dose: 150 mg Documented by: Hydroxyzine HCl (Vistaril) 50 mg PO HSZ PRN PRN Reason: Insomnia Stop: 11/26/19 01:24 Hydroxyzine HCl (Vistaril) 25 mg PO Q4H PRN PRN Reason: Anxiety Stop: 11/26/19 01:24 Lactase (Lactaid) 3,000 units PO PRN PRN PRN Reason: lactose exposure Stop: 11/27/19 13:44 Magnesium Hydroxide (Milk Of Magnesia) 30 ml PO DAILY PRN PRN Reason: Constipation Stop: 11/26/19 01:24 Miscellaneous (Remove Nicoderm Patch) 1 ea N/A DAILY@0859 [facility] Stop: 11/27/19 08:58 Last Admin: 10/28/19 08:34 Dose: 1 ea Documented by: Nicotine (Nicoderm Cq) 14 mg TD QAM [facility] Stop: 11/26/19 17:14 Last Admin: 10/28/19 08:34 Dose: 14 mg Documented by: Nicotine Polacrilex (Nicorette 2mg) 1 piece MT PRN PRN PRN Reason: smoking cravings Stop: 11/26/19 17:04 Quetiapine Fumarate (Seroquel) 25 mg PO BID PRN PRN Reason: agitation/manic symptoms Stop: 11/26/19 20:59 Quetiapine Fumarate (Seroquel) 100 mg PO HS [facility] Stop: 11/27/19 21:59 Last Admin: 10/28/19 21:08 Dose: 100 mg Documented by: Quetiapine Fumarate (Seroquel) 25 mg PO DAILY [facility] Stop: 11/27/19 13:59 Last Admin: 10/28/19 15:04 Dose: 25 mg Documented by: Sodium Chloride ([place] Nasal) 1 - 2 sprays NA PRN PRN PRN Reason: Nasal Dryness/Congestion Stop: 11/26/19 01:24 Trimethoprim/Sulfamethoxazole (Septra Ds 800/160mg Tab) 1 tab PO BID [facility] Stop: 11/03/19 08:59 Last Admin: 10/28/19 21:08 Dose: 1 tab Documented by: Mental Health & Subst Abuse Tx Therapist Name of Therapist: None Senior Sql Server Dba Name of Senior Sql Server Dba: None Post Discharge Appointments Primary Care Physician Name Of Family Doctor: KATERIN Hart Primary Care Provider Appointment Comment: [address] [facility], [address], [place] [address] Contact Information Discharge Discharge Address: [address] [place] [address], [place] [address], [place] [address] (1) UTI (urinary tract infection) Hematuria presence: without hematuria Urinary tract infection type: site unspecified Qualified Code(s): N39.0 - Urinary tract infection, site not specified
[2019-10-29] MEDS: BuPROPion SR 150 MG TABCR PO SCH (08:29)
[2019-10-29] MEDS: SULFAMETHOXAZOLE/TRIMETHOPRIM DS 800/160MG TAB PO SCH ×2 (08:29→21:10)
[2019-10-29] MEDS: QUETIAPINE FUMARATE 25 MG TABLET PO SCH ×2 (08:29→13:12)
[2019-10-29] MEDS: NICOTINE 14 MG/24 HR PATCH TD SCH (08:29)
--- NOTE | 2019-10-29 11:32 | Psychiatric Progress Note ---
Date of Service October 29, 2019 Impression / Recommendations (1) Bipolar 1 disorder: 10/26 - manic episode, newly dx and new for pt to be addressing this 302 admission 3S q15 minute checks milieu therapy inept individual and group therapy stopped Risperdal start Seroquel at 50mg Hs and 25mg pen doses up to bid with aim to titrate further as tolerating. fasting labs for sugar and lipids given atypical antipsychotic start psychoeducation aftercare referrals family meeting - aiming for meeting with 10/27 increase seroquel to 25mg am schedule and 100mg hs scheduled and maintained 25mg prn doses up to bid continue treatment plan as above, family meeting pending 10/28 - Titrating scheduled dosing of quetiapine to TID dosing of 25mg/25mg/100mg - 25mg BID prn doses remain available. Consider further titration as indicated/tolerated. - Baseline FLP notable for cholesterol 208, otherwise within normal limits. - Family meeting scheduled for this afternoon with patient's - Collateral obtained from mother, who states this presentation is very unusual for the patient - Will initiate referrals for outpatient psychiatric providers (2) Miscarriage: 10/26 - 3rd miscarriages per pt, pt wants to try to get again once psychiatric stabilized 10/28 -will need follow-up with AQUATIC SCIENTIST. (3) UTI (urinary tract infection): Complete antibiotic started in the ER. 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 Chief Complaint "Um...I'm feeling a little more emotional. Like, I really want to go home, but I know I need to get stable...so..." Review of Systems Notes Constitutional: denied Cardiovascular: denied Respiratory: denied Gastrointestinal: denied Neurological: denied Psychiatric: denies symptoms other than stated above Total of at least 10 systems reviewed, pertinent positives as above and in HPI. Sleep Information Total Hours of Sleep: 7.25 Sleep Comments: admitted at 0112. Meal Information Percent Meal Consumed - Breakfast: 100 Percent Meal Consumed - Lunch: 100 Percent Meal Consumed - Dinner: 100 Subjective Subjective Patient was seen & assessed and interval progress reviewed with treatment team. Staff report the patient has been hyperverbal, intrusive in conversations, and has required frequent redirection. Staff does report patient appears to be ga ining some insight as to her manic presentation and responds appropriately to redirection. Pt is scheduled for a family meeting this afternoon with her . Pt was seen today to assess progress since admission. Pt states she is feeling "a little more emotional" today. She shares with this provider that while she very much would like to go home, she is also struggling with the knowledge that she may require further stabilization here in the hospital. Pt begins by stating she is "calm", "normal", and justifies her behavior by stating "I ramble because I see the bigger picture, so I like specific questions - otherwise I'll just keep talking." Pt spent a significant amount of time sharing various life stressors she is currently experiencing. Pt states she has noticed struggles to maintain her work, extra schooling, and moving to a new apartment. Pt is very circumstantial during conversation, sharing only somewhat related stories and then returning to our previous topic. She interjects a number of stories related to friendship and relationship drama, but is unable to paint a clear picture as to the timeline of any of these events. Some of her stories applied to situations occurring 2 years ago, while others were depicting events that occurred just prior to admission. After a significant period of time of patient sharing these events, patient was asked her perception of her current thoughts/mood/behavior. Pt reports feeling that her thoughts "have focused, are more calm." Pt does admit that she is "on track" to being baseline, but recognizes she is not yet there. Pt reports concern for her ability to calmly handle the move and continue work/school "without becoming psycho." This provider also offered the patient feedback, openly discussing her hyperverbal tendencies and suggesting these may be beyond the patient's "normal." After some reflection, the patient was able to recognize that she may benefit from increased doses of the medication. She is agreeable with an afternoon dose of quetiapine 25mg, and is also willing for further titration as indicated. We discussed that additional medication may be necessary to help stabilize her mood and improve her racing thoughts at this time. Pt reports her primary motivation is to focus on treatment that will allow her to handle the upcoming stress and maintain mood stability. Pt continues to deny SI, as well as other needs or concerns at this time. Pt did state she would plan request a prn dose of quetiapine directly after our meeting and consider additional doses as needed throughout the rest of the day. Physical Exam Psychiatric Orientation: alert, oriented x 3 and cooperative (and pleasant) Apperance: appropriately dressed, appropriately groomed and appeared stated age Eye Contact: good eye contact Motor Behavior: + psychomotor agitation (appearing restless, gesturing with hands and arms while talking) Speech: + pressured speech (hyperverbal, rapid - frequently getting off topic) Affect: + elated affect (labile with inappropriate laughter ); + mood not congruent with affect Mood: no depressed mood "I feel good, I'm calm now." Thought Process: + circumstantial thought process, + flight of ideas and + perseveration (focused on drama within friendships and previous relationships) Thought Content: reality based without delusions; no hopelessness Suicidal Thoughts: denies suicidal thoughts and denies suicidal intent Homicidal Thoughts: denies homicidal thoughts Hallucinations: no auditory hallucinations and no visual hallucinations Cognition: attention grossly intact and language grossly intact Estimated Intelligence: consistent with education level Insight: + fair insight (though still requiring staff redirection periodically ) Judgement: + fair judgement Vital Signs (Past 24 Hours) Last Vital Signs Temp 36.6 C 10/29/19 06:47 Pulse 76 10/29/19 06:48 Resp 18 10/29/19 06:47 BP 116/78 10/29/19 06:48 Pulse Ox 99 10/27/19 01:09 Results & Data ([facility]) Laboratory Results Laboratory Results - last 24 hr 10/26/19 17:11 U Marijuana THC Carboxy 240 H Drug Screen Comment SEE NOTE Current Inpatient Medications Current Inpatient Medications: Current Inpatient Medications Acetaminophen (Tylenol) 650 mg PO Q4H PRN PRN Reason: Headache or Minor Fever Stop: 11/26/19 01:24 Al Hydrox/Mg Hydrox/Simethicone (Maalox) 30 ml PO Q4H PRN PRN Reason: GI Upset Stop: 11/26/19 01:24 Bismuth Subsalicylate (Kaopectate) 15 ml PO PRN PRN PRN Reason: Loose Stool Stop: 11/26/19 01:24 Bupropion HCl (Wellbutrin-Sr) 150 mg PO QAM [facility] Stop: 11/27/19 08:59 Last Admin: 10/29/19 08:29 Dose: 150 mg Documented by: Hydroxyzine HCl (Vistaril) 50 mg PO HSZ PRN PRN Reason: Insomnia Stop: 11/26/19 01:24 Hydroxyzine HCl (Vistaril) 25 mg PO Q4H PRN PRN Reason: Anxiety Stop: 11/26/19 01:24 Lactase (Lactaid) 3,000 units PO PRN PRN PRN Reason: lactose exposure Stop: 11/27/19 13:44 Magnesium Hydroxide (Milk Of Magnesia) 30 ml PO DAILY PRN PRN Reason: Constipation Stop: 11/26/19 01:24 Miscellaneous (Remove Nicoderm Patch) 1 ea N/A DAILY@0859 [facility] Stop: 11/27/19 08:58 Last Admin: 10/29/19 08:30 Dose: 1 ea Documented by: Nicotine ([facility]oderm Cq) [facility] Stop: 11/26/19 17:14 Last Admin: 10/29/19 08:29 Dose: 14 mg Documented by: Nicotine Polacrilex (Nicorette 2mg) 1 piece MT PRN PRN PRN Reason: smoking cravings Stop: 11/26/19 17:04 Quetiapine Fumarate (Seroquel) 25 mg PO BID PRN PRN Reason: agitation/manic symptoms Stop: 11/26/19 20:59 Quetiapine Fumarate (Seroquel) 100 mg PO HS [facility] Stop: 11/27/19 21:59 Last Admin: 10/28/19 21:08 Dose: 100 mg Documented by: Quetiapine Fumarate (Seroquel) 25 mg PO DAILY [facility] Stop: 11/27/19 13:59 Last Admin: 10/29/19 08:29 Dose: 25 mg Documented by: Sodium Chloride ([place] Nasal) 1 - 2 sprays NA PRN PRN PRN Reason: Nasal Dryness/Congestion Stop: 11/26/19 01:24 Trimethoprim/Sulfamethoxazole (Septra Ds 800/160mg Tab) 1 tab PO BID [facility] Stop: 11/03/19 08:59 Last Admin: 10/29/19 08:29 Dose: 1 tab Documented by: Mental Health & Subst Abuse Tx Therapist Name of Therapist: None Pipe Line Repairer Name of Pipe Line Repairer: None Post Discharge Appointments Primary Care Physician Name Of Family Doctor: KATERIN Hart Primary Care Provider Appointment Comment: [id number], [address], [place] [address] Contact Information Discharge Discharge [address]: [address] [place] [address], [place] [address], [place] [address] (1) UTI (urinary tract infection) Hematuria presence: without hematuria Urinary tract infection type: site u nspecified Qualified Code(s): N39.0 - Urinary tract infection, site not specified
[2019-10-29] MEDS: QUETIAPINE FUMARATE 100 MG TABLET PO SCH (21:10)
[2019-10-30] MEDS: QUETIAPINE FUMARATE 25 MG TABLET PO SCH ×2 (08:35→13:50)
[2019-10-30] MEDS: BuPROPion SR 150 MG TABCR PO SCH (08:35)
[2019-10-30] MEDS: NICOTINE 14 MG/24 HR PATCH TD SCH (08:35)
[2019-10-30] MEDS: SULFAMETHOXAZOLE/TRIMETHOPRIM DS 800/160MG TAB PO SCH ×2 (08:35→21:14)
--- NOTE | 2019-10-30 08:36 | Psychiatric Progress Note ---
Date of Service October 30, 2019 Impression / Recommendations Impression Isrrael is improving, we will continue to titrate quetiapine, will discontinuing bupropion as it may be exacerbating manic symptoms. Family meeting with yesterday was difficult, as patient was defensive and attempting to rationalize concerning behaviors and symptoms. She continues to push for discharge, feeling she has stabilized, although ongoing manic symptoms are evident. Inpatient treatment remains medically necessary due to the severity of her symptoms and risk for rapid decompensation if discharged prematurely. (1) Bipolar 1 disorder: 10/26 - manic episode, newly dx and new for pt to be addressing this 302 admission 3S q15 minute checks milieu therapy inept individual and group therapy stopped Risperdal start Seroquel at 50mg Hs and 25mg prn doses up to bid with aim to titrate further as tolerating. fasting labs for sugar and lipids given atypical antipsychotic start psychoeducation aftercare referrals family meeting - aiming for meeting with 10/27 increase Seroquel to 25mg am schedule and 100mg hs scheduled and maintained 25mg prn doses up to bid continue treatment plan as above, family meeting pending 10/28 - Titrating scheduled dosing of quetiapine to TID dosing of 25mg/25mg/100mg - 25mg BID prn doses remain available. Consider further titration as indicated/tolerated. - Baseline FLP notable for cholesterol 208, otherwise within normal limits. - Family meeting scheduled for this afternoon with patient's - Collateral obtained from mother, who states this presentation is very unusual for the patient - Will initiate referrals for outpatient psychiatric providers 10/29 - Hold bupropion as may be exacerbating isrrael. Increase quetiapine to 25/50/100 mg to target isrrael. Encourage use of as needed's. - Referring to [place] for outpatient treatment, still exploring options for therapy ([facility]?) - Family meeting with was difficult. Recommend a second meeting prior to discharge. (2) Miscarriage: 10/26 - 3rd miscarriages per pt, pt wants to try to get again once psychiatric stabilized 10/28 -will need follow-up with EXECUTIVE ACCOUNT MANAGER. (3) UTI (urinary tract infection): Complete antibiotic started in the ER. (4) Cannabis abuse: 10/29 - Continue to provide education about the risks of substance abuse including worsening of mood and psychotic symptoms and recommendations for abstinence. 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 She has now signed in voluntarily. Chief Complaint " Pretty well, I like the new patients here". Review of Systems Sleep Information Total Hours of Sleep: 7 Sleep Comments: pt on q-15 minute checks Meal Information Percent Meal Consumed - Breakfast: 100 Percent Meal Consumed - Lunch: 75 Percent Meal Consumed - Dinner: 100 Subjective Subjective Patient was seen & assessed and interval progress reviewed with nursing and social work. Staff report her quetiapine was increased to a total of 150mg daily + prns. She had a family meeting with her Clemente which did not go well, as she was hyperverbal, labile, and reactive, trying to rationalize her behavior and was not open to his observations that she was unwell and having severe symptoms. She got angry when her brought up her concerning behavior. He reported symptoms started about 5 days prior to admission, and outlined multiple stressors including recent miscarriage, after which she was not eating or sleeping. She demonstrated poor insight, stating she was fine and did not need to be here. On my assessment, she states that she understands she is "here because of my outbursts, I know I needed to get help," but now think she is fine and ready to be discharged. She admits the meeting yesterday was difficult as she wanted to prove that she is better, but says she and her have talked since then," now we are on the same page." She reports elevated energy and feeling "bouncy," but that racing thoughts and focus have improved. She feels medications are helping, and agrees to hold Wellbutrin as it may be exacerbating isrrael, while increasing quetiapine in the afternoon as this is the most difficult time for her to reign in her symptoms. She feels she is ready for discharge "today, or if not now, tomorrow." Physical Exam Psychiatric Orientation: alert and cooperative Apperance: appropriately dressed, appropriately groomed and appeared stated age Eye Contact: good eye contact Motor Behavior: steady gait and station and no abnormal motor movements Hyperverbal, mildly pressured, interrupting at times Expansive, euphoric "Pretty well." Thought Process: + looseness of associations Thought Content: reality based without delusions Suicidal Thoughts: denies suicidal thoughts Homicidal Thoughts: denies homicidal thoughts Hallucinations: no auditory hallucinations Cognition: recent memory grossly intact and language grossly intact; + attention not intact Insight: + fair insight Judgement: + fair judgement Vital Signs (Past 24 Hours) Last Vital Signs Temp 36.7 C 10/30/19 06:41 Pulse 77 10/30/19 06:42 Resp 18 10/30/19 06:41 BP 118/69 10/30/19 06:42 Pulse Ox 99 10/27/19 01:09 Results & Data ([facility]) Current Inpatient Medications Current Inpatient Medications: Current Inpatient Medications Acetaminophen (Tylenol) 650 mg PO Q4H PRN PRN Reason: Headache or Minor Fever Stop: 11/26/19 01:24 Al Hydrox/Mg Hydrox/Simethicone (Maalox) 30 ml PO Q4H PRN PRN Reason: GI Upset Stop: 11/26/19 01:24 Bismuth Subsalicylate (Kaopectate) 15 ml PO PRN PRN PRN Reason: Loose Stool Stop: 11/26/19 01:24 Bupropion HCl (Wellbutrin-Sr) 150 mg PO QAM [facility] Stop: 11/27/19 08:59 Last Admin: 10/29/19 08:29 Dose: 150 mg Documented by: Hydroxyzine HCl (Vistaril) 50 mg PO HSZ PRN PRN Reason: Insomnia Stop: 11/26/19 01:24 Hydroxyzine HCl (Vistaril) 25 mg PO Q4H PRN PRN Reason: Anxiety Stop: 11/26/19 01:24 Lactase (Lactaid) 3,000 units PO PRN PRN PRN Reason: lactose exposure Stop: 11/27/19 13:44 Magnesium Hydroxide (Milk Of Magnesia) 30 ml PO DAILY PRN PRN Reason: Constipation Stop: 11/26/19 01:24 Miscellaneous (Remove Nicoderm Patch) 1 ea N/A DAILY@0859 [facility] Stop: 11/27/19 08:58 Last Admin: 10/29/19 08:30 Dose: 1 ea Documented by: Nicotine (Nicoderm Cq) 14 mg TD QAM [facility] Stop: 11/26/19 17:14 Last Admin: 10/29/19 08:29 Dose: 14 mg Documented by: Nicotine Polacrilex (Nicorette 2mg) 1 piece MT PRN PRN PRN Reason: smoking cravings Stop: 11/26/19 17:04 Quetiapine Fumarate (Seroquel) 25 mg PO BID PRN PRN Reason: agitation/manic symptoms Stop: 11/26/19 20:59 Last Admin: 10/29/19 13:02 Dose: 25 mg Documented by: Quetiapine Fumarate (Seroquel) 100 mg PO HS [facility] Stop: 11/27/19 21:59 Last Admin: 10/29/19 21:10 Dose: 100 mg Documented by: Quetiapine Fumarate (Seroquel) 25 mg PO BID@0830,1300 [facility] Stop: 11/28/19 12:59 Last Admin: 10/29/19 13:12 Dose: Not Given Documented by: Sodium Chloride ([place] Nasal) 1 - 2 sprays NA PRN PRN PRN Reason: Nasal Dryness/Congestion Stop: 11/26/19 01:24 Trimethoprim/Sulfamethoxazole (Septra Ds 800/160mg Tab) 1 tab PO BID [facility] Stop: 11/03/19 08:59 Last Admin: 10/29/19 21:10 Dose: 1 tab Documented by: Mental Health & Subst Abuse Tx Therapist Name of Therapist: None Delinquent Tax Collection Assistant Name of Delinquent Tax Collection Assistant: None Post Discharge Appointments Primary Care Physician Name Of Family Doctor: KATERIN Hart Primary Care Provider Appointment Comment: [id number], [address], [place] [address] Contact Information Discharge Discharge Address: [address] [place] [address], [place] [address], [place] [address] (1) UTI (urinary tract infection) Hematuria presence: without hematuria Urinary tract infection type: site unspecified Qualified Code(s): N39.0 - Urinary tract infection, site not specified
[2019-10-30] MEDS ORDERED: QUETIAPINE FUMARATE 25 MG TABLET PO SCH (13:00)
[2019-10-30] MEDS: NICOTINE POLACRILEX 2 MG GUM MT PRN (17:46)
[2019-10-30] MEDS: QUETIAPINE FUMARATE 100 MG TABLET PO SCH (21:14)
[2019-10-31] MEDS ORDERED: QUETIAPINE FUMARATE 25 MG TABLET PO SCH (09:00)
[2019-10-31] MEDS: SULFAMETHOXAZOLE/TRIMETHOPRIM DS 800/160MG TAB PO SCH ×2 (09:02→21:11)
[2019-10-31] MEDS: QUETIAPINE FUMARATE 25 MG TABLET PO SCH ×2 (09:02→13:38)
[2019-10-31] MEDS: NICOTINE 14 MG/24 HR PATCH TD SCH (09:05)
[2019-10-31] MEDS: NICOTINE POLACRILEX 2 MG GUM MT PRN (10:06)
--- NOTE | 2019-10-31 15:43 | Psychiatric Progress Note ---
Date of Service October 31, 2019 Impression / Recommendations Impression Isrrael is improving, we will continue to titrate quetiapine, will discontinuing bupropion as it may be exacerbating manic symptoms. Initial family meeting with was difficult, as patient was defensive and attempting to rationalize concerning behaviors and symptoms. Repeat meeting was scheduled for this afternoon; however, was unable to be contacted despite numerous attempts. Although patient is verbalizing feeling ready for discharge, she is understanding of our recommendation to involve in discharge planning and conduct another family meeting to assess his thoughts on her proximity to baseline. She is still hyperverbal and pressured, but reports feeling calm and is refusing to titrate quetiapine any further at this time. Inpatient treatment remains medically necessary due to the severity of her symptoms and risk for rapid decompensation if discharged prematurely. (1) Bipolar 1 disorder: 10/26 - manic episode, newly dx and new for pt to be addressing this 302 admission 3S q15 minute checks milieu therapy inept individual and group therapy stopped Risperdal start Seroquel at 50mg Hs and 25mg prn doses up to bid with aim to titrate further as tolerating. fasting labs for sugar and lipids given atypical antipsychotic start psychoeducation aftercare referrals family meeting - aiming for meeting with 10/27 increase Seroquel to 25mg am schedule and 100mg hs scheduled and maintained 25mg prn doses up to bid continue treatment plan as above, family meeting pending 10/28 - Titrating scheduled dosing of quetiapine to TID dosing of 25mg/25mg/100mg - 25mg BID prn doses remain available. Consider further titration as indicated/tolerated. - Baseline FLP notable for cholesterol 208, otherwise within normal limits. - Family meeting scheduled for this afternoon with patient's - Collateral obtained from mother, who states this presentation is very unusual for the patient - Will initiate referrals for outpatient psychiatric providers 10/29 - Hold bupropion as may be exacerbating isrrael. Increase quetiapine to 25/50/100 mg to target isrrael. Encourage use of as needed's. - Referring to [facility] for outpatient treatment, still exploring options for therapy ([facility]?) - Family meeting with was difficult. Recommend a second meeting prior to discharge. 10/30 - Continue current medication regimen. Further titration of quetiapine was suggested; however, patient declined. Condition does appear to be somewhat improved today, and prns of quetiapine remain available. - Medication management scheduled at [facility], and [facility] for therapy - Recommending repeat family meeting with , as initial meeting was difficult and patient was still demonstrating symptoms of isrrael. Meeting was scheduled for this afternoon; however, was not able to be reached following numerous attempts by staff. Will explore options to reschedule. - Discharge timeline dependent on collateral obtained from , patient reporting feeling ready for discharge but understanding of need to involve in discharge planning. - Will d/c [facility] as patient's symptoms are improving and she is far less intrusive. (2) Miscarriage: 10/26 - 3rd miscarriages per pt, pt wants to try to get again once psychiatric stabilized 10/28 -will need follow-up with LAB MANAGER. (3) UTI (urinary tract infection): Complete antibiotic started in the ER. (4) Cannabis abuse: 10/29 - Continue to provide education about the risks of substance abuse including worsening of mood and psychotic symptoms and recommendations for abstinence. 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 She has now signed in voluntarily. Chief Complaint "Oh, I'm just resting. I feel fine, just a little tired." Review of Systems Notes Constitutional: reports fatigue Cardiovascular: denied Respiratory: denied Gastrointestinal: denied Neurological: denied Psychiatric: denies symptoms other than stated above Total of at least 10 systems reviewed, pertinent positives as above and in HPI. Sleep Information Total Hours of Sleep: 6.5 Sleep Comments: pt on q-15 minute checks Meal Information Percent Meal Consumed - Breakfast: 75 Percent Meal Consumed - Lunch: 80 Percent Meal Consumed - Dinner: 80 Subjective Subjective Patient was seen & assessed and interval progress reviewed with treatment team. Staff report the patient has been attending group programming and interacting appropriately with peers. She reports improvement; however, repeat family meeting has been scheduled for this afternoon with her to ensure he is comfortable with discharge planning. Pt rated her mood an 8/10 and "fine" last evening. Pt was seen today to assess progress since admission. Pt states she is "overall, feeling pretty good." Interview is conducted 1 hour after family meeting was scheduled to occur with her . Pt states she is not surprised we are having difficulty reaching him, as he is often mandated to remain at work. She states that she is not particularly upset about this, although she admits she was hopeful for discharge today. Pt is able to appreciate the importance of her 's perception of her improvement and verbalizes agreement with ongoing hospitalization. Pt states she does not wish to increase her dose of quetiapine any further as "I feel content, I feel good. I want to give this time to work." Pt reports feeling that her thoughts are slowed and states "I've been catching myself, I think it's a lot easier now." Pt was recommended to consider further titration of the medication, as she has expressed concern that she may have difficulty with work and school related to racing thoughts. Pt again states she is not interested in increasing the dose at this time. Pt does admit to feeling "energetic" today, but states "I wouldn't say manic, I feel good." Pt denies SI as well as other safety concerns at this time. Pt denies other needs or concerns. Physical Exam Psychiatric Orientation: alert, oriented x 3 and cooperative (and pleasant) Apperance: appropriately dressed (casually), appropriately groomed and appeared stated age Eye Contact: good eye contact Motor Behavior: no abnormal motor movements (observed while sitting cross-legged on bed) Speech: + pressured speech (hyperverbal, though slowed from admission) Affect: euthymic affect (still animated) Mood: no depressed mood ("Overall, I feel pretty good") Thought Process: goal directed thought process, clear/coherent thought process (thoughts appear to be racing still, but articulation is clear and logical) and thought association intact Thought Content: reality based without delusions; no hopelessness and no worthlessness Suicidal Thoughts: denies suicidal thoughts and denies suicidal intent Homicidal Thoughts: denies homicidal thoughts Hallucinations: no auditory hallucinations and no visual hallucinations Cognition: recent memory grossly intact, attention grossly intact and language grossly intact Estimated Intelligence: consistent with education level Insight: + fair insight Judgement: + fair judgement Vital Signs (Past 24 Hours) Last Vital Signs Temp 36.6 C 10/31/19 06:46 Pulse 102 H 10/31/19 06:46 Resp 18 10/31/19 06:46 BP 126/76 10/31/19 06:46 Pulse Ox 99 10/27/19 01:09 Results & Data ([facility]) Current Inpatient Medications Current Inpatient Medications: Current Inpatient Medications Acetaminophen (Tylenol) 650 mg PO Q4H PRN PRN Reason: Headache or Minor Fever Stop: 11/26/19 01:24 Al Hydrox/Mg Hydrox/Simethicone (Maalox) 30 ml PO Q4H PRN PRN Reason: GI Upset Stop: 11/26/19 01:24 Bismuth Subsalicylate (Kaopectate) 15 ml PO PRN PRN PRN Reason: Loose Stool Stop: 11/26/19 01:24 Hydroxyzine HCl (Vistaril) 50 mg PO HSZ PRN PRN Reason: Insomnia Stop: 11/26/19 01:24 Hydroxyzine HCl (Vistaril) 25 mg PO Q4H PRN PRN Reason: Anxiety Stop: 11/26/19 01:24 Lactase (Lactaid) 3,000 units PO PRN PRN PRN Reason: lactose exposure Stop: 11/27/19 13:44 Magnesium Hydroxide (Milk Of Magnesia) 30 ml PO DAILY PRN PRN Reason: Constipation Stop: 11/26/19 01:24 Miscellaneous (Remove Nicoderm Patch) 1 ea N/A DAILY@0859 [facility] Stop: 11/27/19 08:58 Last Admin: 10/31/19 09:05 Dose: 1 ea Documented by: Nicotine (Nicoderm Cq) 14 mg TD QAM [facility] Stop: 11/26/19 17:14 Last Admin: 10/31/19 09:05 Dose: 14 mg Documented by: Nicotine Polacrilex (Nicorette 2mg) 1 piece MT PRN PRN PRN Reason: smoking cravings Stop: 11/26/19 17:04 Last Admin: 10/31/19 10:06 Dose: 1 piece Documented by: Quetiapine Fumarate (Seroquel) 25 mg PO BID PRN PRN Reason: agitation/manic symptoms Stop: 11/26/19 20:59 Last Admin: 10/29/19 13:02 Dose: 25 mg Documented by: Quetiapine Fumarate (Seroquel) 100 mg PO HS WILBERTO Stop: 11/27/19 21:59 Last Admin: 10/30/19 21:14 Dose: 100 mg Documented by: Quetiapine Fumarate (Seroquel) 25 mg PO QAM WILBERTO Stop: 11/30/19 08:59 Last Admin: 10/31/19 09:02 Dose: 25 mg Documented by: Quetiapine Fumarate (Seroquel) 50 mg PO 1300 WILBERTO Stop: 11/29/19 12:59 Last Admin: 10/31/19 13:38 Dose: 50 mg Documented by: Sodium Chloride ([place] Nasal) 1 - 2 sprays NA PRN PRN PRN Reason: Nasal Dryness/Congestion Stop: 11/26/19 01:24 Trimethoprim/Sulfamethoxazole (Septra Ds 800/160mg Tab) 1 tab PO BID WILBERTO Stop: 11/03/19 08:59 Last Admin: 10/31/19 09:02 Dose: 1 tab Documented by: Mental Health [facility] Subst Abuse [facility] Psychiatrist Name of Psychiatrist: Nena Hoover PA-C, Psychiatrist's Date of Appointment with Psychiatrist: 11/13/19 Time of Appointment with Psychiatrist: 1:40pm Psychiatric Appointment Comment: this will be telehealth, they will call you Tuesday to set it up [facility]rapist [facility] Date of Therapist Appointment: 11/06/19 Time of Therapist Appointment: 12:00pm Therapy Appointment Comment: Telehealth appointment-they will email you link Axle Turner Name of Axle Turner: None Post Discharge Appointments Primary Care Physician Name Of Family Doctor: KATERIN Hart Primary Care Provider Appointment Comment: [address], [address], [place] [address] Specialist Name of Specialist: [facility]NA[facility] Phone Number for Specialist: [phone] Date of Appointment with Specialist: 11/08/19 Time of Appointment with Specialist: 8:15am Specialty Appointment Comment: [address], [place], [place] Contact Information Discharge Discharge [address]: [address] [place] [address], [place] [address] (1) UTI (urinary tract infection) Hematuria presence: without hematuria Urinary tract infection type: site unspecified Qualified Code(s): N39.0 - Urinary tract infection, site not specified
[2019-10-31] MEDS: QUETIAPINE FUMARATE 100 MG TABLET PO SCH (21:11)
[2019-11-01] MEDS: SULFAMETHOXAZOLE/TRIMETHOPRIM DS 800/160MG TAB PO SCH (08:54)
[2019-11-01] MEDS: QUETIAPINE FUMARATE 25 MG TABLET PO SCH ×2 (08:55→13:46)
[2019-11-01] MEDS: NICOTINE 14 MG/24 HR PATCH TD SCH (08:56)
--- NOTE | 2019-11-01 15:21 | Discharge Summary ---
Date of Service November 01, 2019 History of Present Illness pt is a 24 yr old female living with her , admitted on a 302 commitment. Pt is with pressured speech and focused on explaining the source of her stress being covid 19 and her 's untreated bipolar II disorder. However in midst of this she does admit to a tendency to externalize and that she wonders if she has bipolar I disorder. She is insightful about her racing thoughts, labile mood, intense anger, increased goal directed activity, impatience, increased sexuality, hyperverbal, pressured speech, restlessness, creative thinking, decreased need for sleep with getting only 2-3 hours of sleep over course of 24 hour day in 2-3 small mini naps over course of day, over driven behaviors and feeling tense and struggling to manage these symptoms and struggling to contain herself in interpersonal situations. She is reported to have had delusional thinking and she indicated that there was a misunderstanding of her facebook posts as she did not mean them in the context they were taken but that she seemed to understand that her manic smyptoms might have lead to some of this now reported misunderstanding. no delusional or paranoid material was noted in this current interview, with pt reporting rather intact infight and judgment during this assessment. she denied overspending of money. She endorsed a tendency to get to depressed mood at times. She has had prior depressive episodes in the past, one of which lead her to take Wellbutrin soni (150mg?) daily for a month and jut neglected to renew her script. She felt much echter as she too the Wellbutrin that it help her severely limit her smoking, she worsened n her mood shortly after stopping that med. She denied s/e while on it including denying worsening of lability of her mood or activating manic symptoms. additional aggravating factor is jut having her 3rd miscarriage. she is seeing to try of become again but not aiming tor this till more emotional stable and less stressed. additional aggravating factor is preparing for a local move. lives with and supportive family members live quite close to them. working in a [place]. 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 she is taking a open course online and seeking to study church studies at [employer] with goal of becoming a professor in that field in the future. denied SI, indicated agitated tied oat manic symptoms with admitting to gating out of control verbally but not physically but was intense in her anger recently. Physical Exam Psychiatric Orientation: alert, oriented x 3 and cooperative (and pleasant) Apperance: appropriately dressed (casually, in scrub pants and a hoodie), appropriately groomed and appeared stated age Eye Contact: good eye contact Motor Behavior: steady gait and station and no abnormal motor movements Speech: normal rate/rhythm/volume of speech (remains somewhat rapid, but improved improved significantly over admission) Affect: euthymic affect and mood congruent with affect Mood: no depressed mood ("I feel a lot better") Thought Process: goal directed thought process, clear/coherent thought process and thought association intact Thought Content: reality based without delusions; no delusions and no hopelessness Suicidal Thoughts: denies suicidal thoughts and denies suicidal intent Homicidal Thoughts: denies homicidal thoughts Hallucinations: no auditory hallucinations and no visual hallucinations Cognition: recent memory grossly intact, attention grossly intact and language grossly intact Estimated Intelligence: consistent with education level Insight: good insight Judgement: good judgement Vital Signs (Past 24 Hours) Last Vital Signs Temp 36.6 C 11/01/19 06:00 Pulse 90 11/01/19 06:31 Resp 18 11/01/19 06:00 BP 117/74 11/01/19 06:31 Pulse Ox 99 10/27/19 01:09 Principal Diagnosis - Bipolar I disorder - Cannabis abuse Psychiatric Data 24-year-old female admitted involuntarily for inpatient psychiatric treatment on 10/27/2019 after presenting to the ED with significant symptoms of isrrael, including racing thoughts, labile mood, hypersexuality, and pressured speech. It was reported that the patient had been creating and responding to Facebook p osts and demonstrating delusional thinking. Early in patient's admission, she continued to demonstrate manic symptoms, and was attempting to rationalize her previous behavior. Pt was treated for a diagnosis of bipolar I disorder, and she was agreeable with initiation of medications to treat mood instability. Pt was initially given risperidone in the ED, but had expressed desire to become once psychiatrically stable so agent was switched to quetiapine to reduce potential impact on prolactin levels. Pt did disclose that she had recent suffered her third miscarriage. Quetiapine was titrated over the course of the patient's hospitalization, though slowly at patient's request. At the time of discharge, she had been agreeable with TID dosing of 25mg qAM, 50mg in the afternoon, and 100mg at bedtime. Pt does request availability of prn quetiapine on discharge as well. Initially, patient was started on bupropion to target depressive symptoms related to her miscarriage and assist with smoking cessation. As patient's willingness for robust titration of the mood stabilization agent was limited, decision was made to discontinue bupropion for the time being and focus on improving stability of mood. Pt reportedly tolerated medication adjustments without significant side effects. Over the course of the patient's stay, she demonstrated significant improvement with regard to symptoms of isrrael and admitted to slowing of thoughts and feeling more calm and focused. During her hospitalization, the patient participated appropriately with group and recreational programming. She was initially intrusive with conversations, but this evolved into patient being a friendly and supportive member of the milieu. She did allow for family meetings with her , the first admit tedly not going well as patient continued to struggle with continued manic symptoms. There was a repeat family meeting just prior to discharge. expressed feeling comfortable with patient's discharge, admitting he felt she was at baseline. Pt was willing for referrals for outpatient psychiatric treatment. She will have medication management at [facility] and therapy through [facility]. An OBGYN appointment was also scheduled for the patient. Based on review of patient's case and their current presentation, risk of harm to self or others is no longer perceived to be acute. Management of symptoms on an outpatient basis seems the most appropriate and least restrictive setting. Pt seems appropriate for discharge with recommendation for consistent follow-up with outpatient psychiatric prescriber and therapist. Pt verbalized understanding of discharge plan reviewed and is agreeable with plan to be discharged home with today. Day of Discharge Assessment Patient's case was reviewed and discussed during morning report with nursing and social work. Staff report the patient continues to be in appropriate behavioral control, has been supportive of peers, and no longer intrusive. Pt's speech remains rapid, but she has reported improvement in symptoms of isrrael over time. Pt was seen today to assess readiness for discharge. Interaction occurred after a follow-up family meeting with the patient's . Pt states the meeting went well, admitting that their first meeting several days ago was rather difficult "emotions were just so high. He told me we just couldn't listen to each other anymore, it was rough all around." Pt felt this did not occur during today's meeting, and states her feels she is "back to normal." Pt admits that she feels "a lot better." She does admit that her thoughts are still fast, but "they're not racing, they're not unorganized." Pt admits to feeling calm and focused, and is pleased with her current dosage of quetiapine. She does accept a prescription of prn quetiapine for discharge and was encouraged to openly discuss any need for further titration with her outpatient psychiatric prescriber. Pt denies SI or other psychiatric concerns at this time. Aftercare appointments were reviewed, patient verbalizing willingness to ensure attendance at these appointments. Pt admits to feeling ready for discharge and is excited to return home. Pt denies other needs prior to discharge and states will be arriving later this evening to pick her up. ROS: Constitutional: denied Cardiovascular: denied Respiratory: denied Gastrointestinal: denied Neurological: denied Psychiatric: denies symptoms other than stated above Total of at least 10 systems reviewed, pertinent positives as above and in HPI. Transition of Care Transition Of Care Record: was reviewed with the patient Advance Directives Advance Directives Information Provided: Yes Advance Directives: No Mental Health Advance Directive: No Living Will: No Power of Senior Label Specialist: No Advance Directives Reason:: Declines as Mental Health Visit. Risk Factors Assessment Presenting risk factors reviewed on discharge. Precipitating stressors mitigated by: admission for inpatient psychiatric observation and treatment, initiation of medications to target presenting symptoms, attendance of therapeutic treatment groups, development of healthy and effective coping strategies, involvement of outpatient supports, completion of a safety plan, confirmation of guns and weapons being secured, discussion regarding substance abuse and effects on mental health diagnoses, and education on diagnoses. Pt has demonstrated improvement in condition with regard to improvement in mood stability, willingness for appropriate medications, exploration of effective coping skills, and involvement of family in treatment. At this time, patient is requesting discharge and is no longer considered to be at acute risk of harm to herself or others. Pt will be discharged with recommendation for ongoing outpatient psychiatric treatment. 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) Stable Relationships: No Supportive Family: Yes Good Rapport with Provider: No Tobacco Cessation at Discharge Tobacco Cessation Medication Prescribed at Discharge: Offered & Pt Refused Practical counseling provided including: recognizing danger situations, developing coping skills and providing basic information about quitting Tobacco Cessation Outpatient Followup: Outpatient referral made to ([facility] for ongoing discussion regarding smoking cessation) Total Time Total Time Spent: Greater Than 30 Minutes Total Time Includes: Examination of the patient, Discharge Planning, Medication Reconciliation and Communication with other providers Discharge Data Lab Results 10/26/19 10/26/19 10/26/19 17:11 17:11 17:11 WBC RBC Hgb Hct MCV MCH MCHC RDW Std Deviation RDW Coeff of Debby Plt Count MPV Immature Gran % (Auto) Neut % (Auto) Lymph % (Auto) [place] % (Auto) Eos % (Auto) Baso % (Auto) Immature Gran # (Auto) Neut # (Auto) Lymph # (Auto) [place] # (Auto) Eos # (Auto) Baso # (Auto) Sodium Potassium Chloride Carbon Dioxide Anion Gap BUN Creatinine Est Cr Clr Drug Dosing Est GFR ( Amer) Est GFR (Non-Af Amer) BUN/Creatinine Ratio Glucose Fasting Glucose Calcium Total Bilirubin AST ALT Alkaline Phosphatase Total Protein Albumin Globulin Albumin/Globulin Ratio Triglycerides Cholesterol LDL Cholesterol, Calc VLDL Cholesterol, Calc HDL Cholesterol Cholesterol/HDL Ratio TSH HCG, Quant Urine Color Dark Yellow Urine Appearance Cloudy A Urine pH 5.5 Ur Specific [place] 1.020 Urine Protein 1+ H Urine Glucose (UA) Negative Urine Ketones Trace H Urine Blood Trace H Urine Nitrite Positive A Urine Bilirubin Negative Urine Urobilinogen Negative Ur Leukocyte Esterase Negative Urine WBC (Auto) 1-5 Urine RBC (Auto) 0-4 U Hyaline Cast (Auto) 5-10 H U Epithel Cells (Auto) >30 H Urine Bacteria (Auto) 4+ H POC Ur Test Salicylates Urine Opiates Screen Neg Ur Methadone, Qual Neg Acetaminophen Urine Barbiturates Neg Ur Phencyclidine (PCP) Neg U Amphetamin/Meth Scrn Neg MDMA (Ecstasy) Screen Neg U Benzodiazepines Scrn Neg Ur Cocaine Metabolite Neg U Marijuana (THC) Screen Pos H U Marijuana THC Carboxy 240 H Drug Screen Comment SEE NOTE Ethyl Alcohol mg/dL COVID-19 PCR 06/12/20 06/12/20 06/12/20 17:27 17:32 17:32 WBC 4.58 L RBC 4.38 Hgb 13.2 Hct 37.5 MCV 85.6 MCH 30.1 MCHC 35.2 RDW Std Deviation 41.1 RDW Coeff of Debby 13.1 Plt Count 232 MPV 9.9 Immature Gran % (Auto) 0.2 Neut % (Auto) 43.6 Lymph % (Auto) 44.8 [place] % (Auto) 8.7 Eos % (Auto) 2.0 Baso % (Auto) 0.7 Immature Gran # (Auto) 0.01 Neut # (Auto) 2.00 Lymph # (Auto) 2.05 [place] # (Auto) 0.40 Eos # (Auto) 0.09 Baso # (Auto) 0.03 Sodium 140 Potassium 3.6 Chloride 108 H Carbon Dioxide 25 Anion Gap 7.0 BUN 9 Creatinine 0.93 Est Cr Clr Drug Dosing 85.4 Est GFR ( Amer) 99.0 Est GFR (Non-Af Amer) 85.4 BUN/Creatinine Ratio 9.9 L Glucose 80 Fasting Glucose Calcium 9.1 Total Bilirubin 0.7 AST 33 ALT 37 Alkaline Phosphatase 46 Total Protein 7.8 Albumin 4.2 Globulin 3.6 Albumin/Globulin Ratio 1.2 Triglycerides Cholesterol LDL Cholesterol, Calc VLDL Cholesterol, Calc HDL Cholesterol Cholesterol/HDL Ratio TSH 0.307 HCG, Quant Urine Color Urine Appearance Urine pH Ur Specific [place] Urine Protein Urine Glucose (UA) Urine Ketones Urine Blood Urine Nitrite Urine Bilirubin Urine Urobilinogen Ur Leukocyte Esterase Urine WBC (Auto) Urine RBC (Auto) U Hyaline Cast (Auto) U Epithel Cells (Auto) Urine Bacteria (Auto) POC Ur Test POS Salicylates Urine Opiates Screen Ur Methadone, Qual Acetaminophen Urine Barbiturates Ur Phencyclidine (PCP) U Amphetamin/Meth Scrn MDMA (Ecstasy) Screen U Benzodiazepines Scrn Ur Cocaine Metabolite U Marijuana (THC) Screen U Marijuana THC Carboxy Drug Screen Comment Ethyl Alcohol mg/dL COVID-19 PCR 10/26/19 10/26/19 10/26/19 17:32 17:32 17:32 WBC RBC Hgb Hct MCV MCH MCHC RDW Std Deviation RDW Coeff of Debby Plt Count MPV Immature Gran % (Auto) Neut % (Auto) Lymph % (Auto) [place] % (Auto) Eos % (Auto) Baso % (Auto) Immature Gran # (Auto) Neut # (Auto) Lymph # (Auto) [place] # (Auto) Eos # (Auto) Baso # (Auto) Sodium Potassium Chloride Carbon Dioxide Anion Gap BUN Creatinine Est Cr Clr Drug Dosing Est GFR ( Amer) Est GFR (Non-Af Amer) BUN/Creatinine Ratio Glucose Fasting Glucose Calcium Total Bilirubin AST ALT Alkaline Phosphatase Total Protein Albumin Globulin Albumin/Globulin Ratio Triglycerides Cholesterol LDL Cholesterol, Calc VLDL Cholesterol, Calc HDL Cholesterol Cholesterol/HDL Ratio TSH HCG, Quant 18 Urine Color Urine Appearance Urine pH Ur Specific [place] Urine Protein Urine Glucose (UA) Urine Ketones Urine Blood Urine Nitrite Urine Bilirubin Urine Urobilinogen Ur Leukocyte Esterase Urine WBC (Auto) Urine RBC (Auto) U Hyaline Cast (Auto) U Epithel Cells (Auto) Urine Bacteria (Auto) POC Ur Test Salicylates 3.4 Urine Opiates Screen Ur Methadone, Qual Acetaminophen < 2 L Urine Barbiturates Ur Phencyclidine (PCP) U Amphetamin/Meth Scrn MDMA (Ecstasy) Screen U Benzodiazepines Scrn Ur Cocaine Metabolite U Marijuana (THC) Screen U Marijuana THC Carboxy Drug Screen Comment Ethyl Alcohol mg/dL < 3.0 COVID-19 PCR 10/26/19 10/28/19 21:29 08:18 WBC RBC Hgb Hct MCV MCH MCHC RDW Std Deviation RDW Coeff of Debby Plt Count MPV Immature Gran % (Auto) Neut % (Auto) Lymph % (Auto) [place] % (Auto) Eos % (Auto) Baso % (Auto) Immature Gran # (Auto) Neut # (Auto) Lymph # (Auto) [place] # (Auto) Eos # (Auto) Baso # (Auto) Sodium Potassium Chloride Carbon Dioxide Anion Gap BUN Creatinine Est Cr Clr Drug Dosing Est GFR ( Amer) Est GFR (Non-Af Amer) BUN/Creatinine Ratio Glucose Fasting Glucose 75 Calcium Total Bilirubin AST ALT Alkaline Phosphatase Total Protein Albumin Globulin Albumin/Globulin Ratio Triglycerides 59 Cholesterol 208 H LDL Cholesterol, Calc 95 VLDL Cholesterol, Calc 12 HDL Cholesterol 101 Cholesterol/HDL Ratio 2 TSH HCG, Quant Urine Color Urine Appearance Urine pH Ur Specific [place] Urine Protein Urine Glucose (UA) Urine Ketones Urine Blood Urine Nitrite Urine Bilirubin Urine Urobilinogen Ur Leukocyte Esterase Urine WBC (Auto) Urine RBC (Auto) U Hyaline Cast (Auto) U Epithel Cells (Auto) Urine Bacteria (Auto) POC Ur Test Salicylates Urine Opiates Screen Ur Methadone, Qual Acetaminophen Urine Barbiturates Ur Phencyclidine (PCP) U Amphetamin/Meth Scrn MDMA (Ecstasy) Screen U Benzodiazepines Scrn Ur Cocaine Metabolite U Marijuana (THC) Screen U Marijuana THC Carboxy Drug Screen Comment Ethyl Alcohol mg/dL COVID-19 PCR NEGATIVE Hospital Course (1) Bipolar 1 disorder: 10/26 - manic episode, newly dx and new for pt to be addressing this 302 admission 3S q15 minute checks milieu therapy inept individual and group therapy stopped Risperdal start Seroquel at 50mg Hs and 25mg prn doses up to bid with aim to titrate further as tolerating. fasting labs for sugar and lipids given atypical antipsychotic start psychoeducation aftercare referrals family meeting - aiming for meeting with 10/27 increase Seroquel to 25mg am schedule and 100mg hs scheduled and maintained 25mg prn doses up to bid continue treatment plan as above, family meeting pending 10/28 - Titrating scheduled dosing of quetiapine to TID dosing of 25mg/25mg/100mg - 25mg BID prn doses remain available. Consider further titration as indicated/tolerated. - Baseline FLP notable for cholesterol 208, otherwise within normal limits. - Family meeting scheduled for this afternoon with patient's - Collateral obtained from mother, who states this presentation is very unusual for the patient - Will initiate referrals for outpatient psychiatric providers 10/29 - Hold bupropion as may be exacerbating isrrael. Increase quetiapine to 25/50/100 mg to target isrrael. Encourage use of as needed's. - Referring to [facility] for outpatient treatment, still exploring options for therapy ([facility]?) - Family meeting with was difficult. Recommend a second meeting prior to discharge. 10/30 - Continue current medication regimen. Further titration of quetiapine was suggested; however, patient declined. Condition does appear to be somewhat improved today, and prns of quetiapine remain available. - Medication management scheduled at [facility], and [facility] for therapy - Recommending repeat family meeting with , as initial meeting was difficult and patient was still demonstrating symptoms of isrrael. Meeting was scheduled for this afternoon; however, was not able to be reached following numerous attempts by staff. Will explore options to reschedule. - Discharge timeline dependent on collateral obtained from , patient reporting feeling ready for discharge but understanding of need to involve in discharge planning. - Will d/c [facility] as patient's symptoms are improving and she is far less intrusive. (2) Miscarriage: 10/26 - 3rd miscarriages per pt, pt wants to try to get again once psychiatric stabilized 10/28 -will need follow-up with BUSINESS MANAGEMENT SPECIALIST. (3) UTI (urinary tract infection): Complete antibiotic started in the ER. (4) Cannabis abuse: 10/29 - Continue to provide education about the risks of substance abuse including worsening of mood and psychotic symptoms and recommendations for abstinence. Mental Health & Subst Abuse Tx Psychiatrist Name of Psychiatrist: Nena Hoover PA-C, Psychiatrist's Date of Appointment with Psychiatrist: 11/13/19 Time of Appointment with Psychiatrist: 1:40pm Psychiatric Appointment Comment: this will be telehealth, they will call you Tuesday to set it up Therapist Name of Therapist: [facility] Therapist's Date of Therapist Appointment: 11/06/19 Time of Therapist Appointment: 12:00pm Therapy Appointment Comment: Telehealth appointment-they will email you link Computer Assistant Name of Computer Assistant: None Post Discharge Appointments Primary Care Physician Name Of Family Doctor: KATERIN Hart Primary Care Provider Appointment Comment: [address] [facility], [facility] [address], [place] [address] Specialist Name of Specialist: Jayce Chisholm BUSINESS MANAGEMENT SPECIALIST Phone Number for Specialist: [phone] Date of Appointment with Specialist: 11/08/19 Time of Appointment with Specialist: 8:15am Specialty Appointment Comment: [address], [place], [place] Smoking Cessation Counseling Tobacco Cessation Medication Prescribed at Discharge: Offered & Pt Refused Contact Information Discharge Discharge Address: [address] [place] [address], [place] [address] Discharge Plan Discharge Items Patient Disposition: Home - Self-Care Reason For Visit: PSYCHOSIS NOS Discharge Diagnosis: - Bipolar I disorder Condition on Discharge: Fair Activity: Resume your previous activity Non-emergency contact: Primary Care Provider, Psychiatrist and Therapist Call non-emergency contact if: you have any medication questions and your symptoms worsen Follow-up/Referrals: Nasim Hart III, CRNP [Primary Care Provider] - Diet: Regular and Lactose Intolerant Addtl Attending Provider Instructions: SPECIAL CARE INSTRUCTIONS: 1. Follow through with your scheduled aftercare appointments. If unable to keep an appointment, please call to reschedule. 2. Take your medication only as prescribed. Medication should not be changed or stopped without the approval of your doctor. In the event of worsening symptoms or concerns about side effects, contact your doctor immediately. 3. Utilize new healthy coping skills, anger management skills, and stress management skills learned during your hospitalization. Journal feelings and process them with a support person. Identify stressors or situations that may result in relapse, deterioration or inappropriate behaviors and develop a plan to deal with those issues. 4. If your coping skills are ineffective and you are in crisis, contact your outpatient providers for direction. If unable to reach your providers, please call the CAN HELP LINE AT or go to the closest Emergency Room. 5. Avoid alcohol and un-prescribed drugs. 6. You have been provided with the Mental Health Advance Directives Pamphlet for your review. AFTERCARE APPOINTMENTS: * Please call your insurance company prior to your scheduled appointment to confirm your aftercare providers are covered. Take your insurance information to your appointments. WHO TO CALL AND WHEN: Medical Emergencies: For questions or emergencies related to your hospital stay, please contact the Inpatient Behavioral Health Unit at [phone]. A conduit mechanic is on-call 06/12 for the Behavioral Health Unit for emergencies At any time you feel your situation is an emergency, you may also call 911 immediately. Your Discharge Instructions noted above were prepared by provider Shirlene Valentin PA-C. Pending Studies at Discharge: No Stand-Alone Forms: [facility] [email or web address], Smoking Cessation, Suicide Prevention Resources Medications and DC Order Prescriptions: New sulfamethoxazole-trimethoprim 800-160 mg Tablet 1 tab PO BID Qty: 3 RF: 0 lactase 3,000 unit Tablet 3,000 unit PO PRN PRN (Reason: lactose intolerance) 30 Days Qty: 30 RF: 0 quetiapine [Seroquel] 50 mg tablet 50 mg PO UD 30 Days Qty: 30 RF: 0 quetiapine [Seroquel] 25 mg tablet 25 mg PO BID PRN (Reason: racing thoughts/anxiety) Qty: 30 RF: 0 Continued 28-800 mg-mcg Tablet 1 tab PO DAILY RF: 0 zinc 50 mg Tablet 50 mg PO DAILY RF: 0 Discharge Orders: Discharge Order (Routine); Ordered 11/01/19 Ordered By: Shirlene Valentin Admission Data Admit Date/Time: 10/27/19 00:49 Attending Provider: Amy Kline Admit Provider: Gloria Greer Primary Care Provider: Nasim Hart III Other Interventions: PSY Interdisciplinary Discharge Planning Last Done: 10/31/19 14:02 Coding Level of Care Code 87638 D/C day mgmt > 30 min Diagnoses Bipolar 1 disorder F31.9 Miscarriage O03.9 UTI (urinary tract infection) N39.0 Hematuria presence: without hematuria Urinary tract infection type: site unspecified Cannabis abuse F12.10
== END 2019-11-01 16:16 | disposition home or self-care (01) | DRG 885 ==
LOC: ED 16:56 → 3S 10-27 00:49 → SUATTDRO 10-27 00:49 → 3S 10-27 01:09